=== PATIENT | male | born 1955 | race Caucasian/White ===

== ENCOUNTER 2016-08-19 11:44 | Emergency (ER) | payer MEDICARE, OTHER ==
[~2016-08-19] VITALS: Ht 182.9 cm; Wt 90.7 kg
--- NOTE | 2016-08-19 11:50 | NUR ---
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 Patient is aa03,. in no acute distress, respiration even and unlabored. Patient's skin is warm to touch and non diaphoretic. Afebrile,. Noted with left eye brow open wound sp fall post seizure. Unknown tetanus vaccine date iv on rac 20 intact and patent
[2016-08-19] MEDS ORDERED: IV NS 0.9% 1,000 ML ONE (12:10)
[2016-08-19] MEDS ORDERED: TDAP [DIPH/PERTUSSIS/TET] 0.5 ML VIAL IM ONE ×2 (12:11→12:30)
[2016-08-19 12:12] LABS: BASOPHILS # (AUTO) 0.1 /CMM (0.0-0.2); BASOPHILS % (AUTO) 1.4 % (0.0-2.0); EOSINOPHILS # (AUTO) 0.3 /CMM (0.0-0.7); EOSINOPHILS % (AUTO) 6.7 % (0.0-6.0); HEMATOCRIT 40 % (39-51); HEMOGLOBIN 13.5 g/dL (13.5-17.5); LYMPHOCYTES # (AUTO) 2.7 /CMM (0.8-4.8); MEAN CORPUSCULAR HEMOGLOBIN 32 PG (26.0-33.0); MEAN CORPUSCULAR HGB CONC 34 g/dl (31.0-36.0); MEAN CORPUSCULAR VOLUME 96 fL (80-96); MONOCYTES # (AUTO) 0.5 /CMM (0.1-1.30); NEUTROPHILS # (AUTO) 1.6 /CMM (1.8-8.9); NEUTROPHILS % (AUTO) 30.9 % (43.0-81.0); PLATELET COUNT (AUTO) 156 /CMM (150-450); RDW COEFFICIENT OF VARIATION 12.6 (11.5-15.0); RED BLOOD CELL COUNT(AUTO) 4.19 MIL/uL (4.5-6.0); WHITE BLOOD COUNT (AUTO) 5.2 K/uL (4.3-11.0)
[2016-08-19 12:16] LABS: CALCIUM, SERUM 8.5 mg/dL (8.5-10.1); CREATININE 0.9 mg/dL (0.6-1.3); POTASSIUM 3.9 mmol/L (3.5-5.1)
[2016-08-19] MEDS ORDERED: IV NS 0.9% 1,000 ML BAG IV ONE (12:30)
--- NOTE | 2016-08-19 12:30 | NUR ---
Wound care done
[2016-08-19 12:35] LABS: PHENYTOIN (DILANTIN) 0.5 ug/ml (10.0-20.0)
[2016-08-19 14:02] VITALS: BP 141/97
--- NOTE | 2016-08-19 14:03 | NUR ---
Patient discharged to home in stable condition. Written and verbal after care instructions given. Patient verbalizes understanding of instruction.
== END 2016-08-19 14:03 | disposition home or self-care (01) ==
LOC: ER 11:48
DX: S01.112A Laceration without foreign body of left eyelid and periocular area, initial encounter (principal); R56.9 Unspecified convulsions; S09.90XA Unspecified injury of head, initial encounter; W18.09XA Striking against other object with subsequent fall, initial encounter; Y93.89 Activity, other specified; Y92.89 Other specified places as the place of occurrence of the external cause; Y99.8 Other external cause status; F79 Unspecified intellectual disabilities; H40.9 Unspecified glaucoma
CPT/HCPCS: 12013; 36415; 70450; 80048; 80164; 80184; 80185; 82962; 85025; 90471; 90715; 96360; 99285; A4606; A6402 ×2; J7030; Z7610

== ENCOUNTER 2017-11-02 14:41 | Inpatient (IN) | payer MEDICARE, OTHER ==
[~2017-11-02] VITALS: Ht 177.8 cm; Wt 77.1 kg
[2017-11-02 16:08] LABS: BASOPHILS # (AUTO) 0.1 /CMM (0.0-0.2); BASOPHILS % (AUTO) 0.9 % (0.0-2.0); EOSINOPHILS % (AUTO) 0.2 % (0.0-6.0); HEMATOCRIT 43 % (39-51); HEMOGLOBIN 14.6 g/dL (13.5-17.5); LYMPHOCYTES # (AUTO) 2.4 /CMM (0.8-4.8); MEAN CORPUSCULAR HEMOGLOBIN 32 PG (26.0-33.0); MEAN CORPUSCULAR HGB CONC 34 g/dl (31.0-36.0); MEAN CORPUSCULAR VOLUME 94 fL (80-96); MONOCYTES # (AUTO) 1.4 /CMM (0.1-1.30); MONOCYTES % (AUTO) 14.4 % (2.0-12.0); NEUTROPHILS # (AUTO) 5.9 /CMM (1.8-8.9); NEUTROPHILS % (AUTO) 59.5 % (43.0-81.0); PLATELET COUNT (AUTO) 195 /CMM (150-450); RDW COEFFICIENT OF VARIATION 12.6 (11.5-15.0); RED BLOOD CELL COUNT(AUTO) 4.61 MIL/uL (4.5-6.0); WHITE BLOOD COUNT (AUTO) 9.8 K/uL (4.3-11.0)
[2017-11-02 16:19] LABS: CALCIUM, SERUM 9.5 mg/dL (8.5-10.1); POTASSIUM 3.8 mmol/L (3.5-5.1)
[2017-11-02 16:23] LABS: INR 0.97 (0.85-1.15)
[2017-11-02 16:30] LABS: ALBUMIN 3.9 g/dL (3.4-5.0); BILIRUBIN,DIRECT 0.4 mg/dL (0.0-0.2); TOTAL PROTEIN, SERUM 7.6 g/dL (6.4-8.2)
[2017-11-02 16:37] LABS: TROPONIN I 0.018 ng/mL (0.00-0.056)
[2017-11-02 16:48] LABS: CARBAMAZEPINE (TEGRETOL) 5.6 ug/ml (4-11.9)
[2017-11-02] MEDS ORDERED: LACO100T2 PO (17:34)
[2017-11-02] MEDS ORDERED: CLON0.5T4 PO (17:34)
[2017-11-02] MEDS ORDERED: TRAV5DRO EACHEYE (17:34)
[2017-11-02] MEDS ORDERED: DIVA500T2 PO (17:34)
[2017-11-02] MEDS ORDERED: LEVE250T2 PO ×2 (17:34)
[2017-11-02] MEDS ORDERED: LEVO50TA8 PO (17:34)
[2017-11-02] MEDS ORDERED: CHOL100044 PO (17:34)
[2017-11-02] MEDS ORDERED: CHLO473M5 MM (17:34)
[2017-11-02] MEDS ORDERED: CARB200T PO (17:34)
[2017-11-02 17:57] VITALS: BP 134/87
[2017-11-02] MEDS ORDERED: Z GUARD REMEDY 2 OZ OINT TP PRN (18:00)
[2017-11-02] MEDS ORDERED: MAG HYDROX/AL HYDROX/SIMETH 30 ML UDC PO PRN (18:00)
[2017-11-02] MEDS ORDERED: HYDROCODONE/APAP 5/325MG 1 EACH TABLET PO PRN (18:00)
[2017-11-02] MEDS ORDERED: LEVETIRACETAM (250 MG) 250 MG TABLET PO SCH (18:00)
[2017-11-02] MEDS ORDERED: MAGNESIUM HYDROXIDE 30 ML UDC PO PRN (18:00)
[2017-11-02] MEDS ORDERED: ACETAMINOPHEN 325 MG TABLET PO PRN (18:00)
[2017-11-02] MEDS ORDERED: ONDANSETRON HCL/PF 4 MG/2 ML VIAL IVP PRN (18:00)
[2017-11-02 20:00] VITALS: BP 156/89
[2017-11-02 20:16] VITALS: BP 156/89
[2017-11-02] MEDS: LEVETIRACETAM (500MG) 1,000 MG in IV NS 0.9% 100 ML IV SCH (20:38)
[2017-11-02] MEDS: LATANOPROST EYE DROP 0.005% 2.5 ML BOTTLE EACHEYE SCH (20:38)
[2017-11-02] MEDS: ENOXAPARIN SODIUM 40 MG/0.4 ML DISP.SYRIN SQ SCH (20:39)
[2017-11-02] MEDS: IV NS 0.9% 1,000 ML IV PRN (20:39)
[2017-11-02] MEDS: CHLORHEXIDINE GLUCONATE 15 ML UDC MM SCH (20:39)
[2017-11-02] MEDS: LACOSAMIDE 50 MG TABLET PO SCH (21:00)
[2017-11-02] MEDS: VALPROATE 1,000 MG in IV D5W 100 ML IV SCH (21:45)
[2017-11-02] MEDS: ATORVASTATIN 40 MG TABLET PO SCH (22:00)
[2017-11-02] MEDS ORDERED: ATORVASTATIN 10 MG TABLET PO SCH (22:00)
[2017-11-03] VITALS: BP 156/80
[2017-11-03 00:24] VITALS: BP 156/80
[2017-11-03 04:00] VITALS: BP 144/85
[2017-11-03] MEDS: LEVETIRACETAM (500MG) 1,000 MG in IV NS 0.9% 100 ML IV SCH ×2 (06:26→18:04)
[2017-11-03 06:27] LABS: BASOPHILS % (AUTO) 0.4 % (0.0-2.0); EOSINOPHILS % (AUTO) 0.6 % (0.0-6.0); HEMATOCRIT 42 % (39-51); HEMOGLOBIN 14.6 g/dL (13.5-17.5); LYMPHOCYTES % (AUTO) 26.8 % (20.0-44.0); MEAN CORPUSCULAR HEMOGLOBIN 34 PG (26.0-33.0); MEAN CORPUSCULAR HGB CONC 34 g/dl (31.0-36.0); MEAN CORPUSCULAR VOLUME 98 fL (80-96); MONOCYTES % (AUTO) 13.1 % (2.0-12.0); NEUTROPHILS # (AUTO) 4.5 /CMM (1.8-8.9); NEUTROPHILS % (AUTO) 59.1 % (43.0-81.0); PLATELET COUNT (AUTO) 171 /CMM (150-450); RDW COEFFICIENT OF VARIATION 13.3 (11.5-15.0); RED BLOOD CELL COUNT(AUTO) 4.34 MIL/uL (4.5-6.0); WHITE BLOOD COUNT (AUTO) 7.6 K/uL (4.3-11.0)
[2017-11-03 06:45] LABS: THYROID STIMULATING HORMONE 6.073 uIU/mL (0.358-3.74)
[2017-11-03 07:10] LABS: CALCIUM, SERUM 8.9 mg/dL (8.5-10.1); CREATININE 0.8 mg/dL (0.6-1.3); POTASSIUM 3.9 mmol/L (3.5-5.1)
[2017-11-03 08:00] VITALS: BP 143/84
[2017-11-03] MEDS: CHOLECALCIFEROL 1,000 UNIT TABLET (VIT D3) PO SCH (09:00)
[2017-11-03] MEDS: CARBAMAZEPINE 200 MG TABLET PO SCH ×3 (09:00→17:00)
[2017-11-03] MEDS ORDERED: ASPIRIN EC 81 MG TABLET.DR PO SCH ×2 (09:00)
[2017-11-03] MEDS ORDERED: DIVALPROEX SODIUM 500 MG TABLET.DR PO SCH (09:00)
[2017-11-03] MEDS ORDERED: LEVOTHYROXINE SODIUM 50 MCG TABLET PO SCH (09:00)
[2017-11-03] MEDS: clonazePAM 0.5 MG TABLET PO SCH ×2 (09:00→17:00)
[2017-11-03] MEDS: LACOSAMIDE 50 MG TABLET PO SCH ×2 (09:00→21:00)
[2017-11-03] MEDS: PANTOPRAZOLE 40 MG VIAL IV SCH (09:06)
[2017-11-03] MEDS: VALPROATE 1,000 MG in IV D5W 100 ML IV SCH ×2 (09:07→21:12)
[2017-11-03] MEDS: LEVOTHYROXINE INJ 100 MCG VIAL IV SCH (11:44)
[2017-11-03] MEDS ORDERED: LEVETIRACETAM (250 MG) 250 MG TABLET PO SCH (12:00)
[2017-11-03] MEDS: LEVETIRACETAM (500MG) 500 MG in IV NS 0.9% 100 ML IV SCH (12:32)
[2017-11-03 16:00] VITALS: BP 128/76
[2017-11-03] MEDS: LATANOPROST EYE DROP 0.005% 2.5 ML BOTTLE EACHEYE SCH (18:03)
[2017-11-03] MEDS: CHLORHEXIDINE GLUCONATE 15 ML UDC MM SCH (18:13)
[2017-11-03] MEDS: ASPIRIN 300 MG/SUPP.RECT RC SCH (18:28)
[2017-11-03 18:56] LABS: BILIRUBIN,URINE NEGATIVE (NEGATIVE); BLOOD, URINE 2+ Ery/uL (NEGATIVE); COLOR,URINE YELLOW (YELLOW); KETONES,URINE 1+ (NEGATIVE); LEUKOCYTE ESTERASE ,URINE NEGATIVE (NEGATIVE); NITRITE, URINE NEGATIVE (NEGATIVE); PROTEIN,URINE NEGATIVE (NEGATIVE); UGLUCOSE NEGATIVE (NEGATIVE)
[2017-11-03 19:12] LABS: APPEARANCE,URINE SLIGHTLY CLOUDY (CLEAR)
[2017-11-03 19:15] LABS: BACTERIA,URINE Rare /HPF (None Seen); SQUAMOUS EPITHELIAL CELL,UR Rare /HPF (None Seen); WBC,URINE 0-2 /HPF (0-3)
[2017-11-03 20:00] VITALS: BP 122/68
[2017-11-03] MEDS: ENOXAPARIN SODIUM 40 MG/0.4 ML DISP.SYRIN SQ SCH (21:14)
[2017-11-03] MEDS: ATORVASTATIN 40 MG TABLET PO SCH (22:00)
[2017-11-03] MEDS: IV NS 0.9% 1,000 ML IV PRN (23:56)
[2017-11-04] MEDS: LEVETIRACETAM (500MG) 1,000 MG in IV NS 0.9% 100 ML IV SCH ×2 (06:06→17:01)
[2017-11-04 06:25] LABS: BASOPHILS % (AUTO) 0.4 % (0.0-2.0); EOSINOPHILS % (AUTO) 0.5 % (0.0-6.0); HEMATOCRIT 42 % (39-51); HEMOGLOBIN 14.1 g/dL (13.5-17.5); LYMPHOCYTES # (AUTO) 1.7 /CMM (0.8-4.8); LYMPHOCYTES % (AUTO) 22.6 % (20.0-44.0); MEAN CORPUSCULAR HEMOGLOBIN 33 PG (26.0-33.0); MEAN CORPUSCULAR HGB CONC 34 g/dl (31.0-36.0); MEAN CORPUSCULAR VOLUME 98 fL (80-96); MONOCYTES # (AUTO) 0.7 /CMM (0.1-1.30); MONOCYTES % (AUTO) 9.5 % (2.0-12.0); NEUTROPHILS # (AUTO) 5.1 /CMM (1.8-8.9); PLATELET COUNT (AUTO) 168 /CMM (150-450); RDW COEFFICIENT OF VARIATION 13.2 (11.5-15.0); RED BLOOD CELL COUNT(AUTO) 4.26 MIL/uL (4.5-6.0); WHITE BLOOD COUNT (AUTO) 7.6 K/uL (4.3-11.0)
[2017-11-04 06:32] LABS: CREATININE 0.9 mg/dL (0.6-1.3); POTASSIUM 4.3 mmol/L (3.5-5.1)
[2017-11-04 08:00] VITALS: BP 130/71
[2017-11-04] MEDS: PANTOPRAZOLE 40 MG VIAL IV SCH (08:33)
[2017-11-04] MEDS: LEVOTHYROXINE INJ 100 MCG VIAL IV SCH (08:34)
[2017-11-04] MEDS: ASPIRIN 300 MG/SUPP.RECT RC SCH (08:34)
[2017-11-04] MEDS: CARBAMAZEPINE 200 MG TABLET PO SCH ×3 (08:40→16:59)
[2017-11-04] MEDS: clonazePAM 0.5 MG TABLET PO SCH ×2 (08:40→16:59)
[2017-11-04] MEDS: LACOSAMIDE 50 MG TABLET PO SCH ×3 (08:41→21:29)
[2017-11-04] MEDS: CHOLECALCIFEROL 1,000 UNIT TABLET (VIT D3) PO SCH (08:41)
[2017-11-04] MEDS: VALPROATE 1,000 MG in IV D5W 100 ML IV SCH ×2 (09:27→21:29)
[2017-11-04] MEDS: LEVETIRACETAM (500MG) 500 MG in IV NS 0.9% 100 ML IV SCH (12:31)
[2017-11-04 16:00] VITALS: BP 101/76
[2017-11-04] MEDS: CHLORHEXIDINE GLUCONATE 15 ML UDC MM SCH (17:01)
[2017-11-04] MEDS: LATANOPROST EYE DROP 0.005% 2.5 ML BOTTLE EACHEYE SCH (17:14)
[2017-11-04 20:00] VITALS: BP 142/82
[2017-11-04] MEDS: ATORVASTATIN 40 MG TABLET PO SCH ×2 (21:29→22:00)
[2017-11-04] MEDS: ENOXAPARIN SODIUM 40 MG/0.4 ML DISP.SYRIN SQ SCH (21:30)
[2017-11-05] MEDS: IV NS 0.9% 1,000 ML IV PRN (04:10)
[2017-11-05] MEDS: LEVETIRACETAM (500MG) 1,000 MG in IV NS 0.9% 100 ML IV SCH ×2 (06:07→17:14)
[2017-11-05 06:35] LABS: BASOPHILS % (AUTO) 0.7 % (0.0-2.0); HEMATOCRIT 40 % (39-51); HEMOGLOBIN 13.6 g/dL (13.5-17.5); LYMPHOCYTES # (AUTO) 1.7 /CMM (0.8-4.8); LYMPHOCYTES % (AUTO) 34.8 % (20.0-44.0); MEAN CORPUSCULAR HEMOGLOBIN 34 PG (26.0-33.0); MEAN CORPUSCULAR HGB CONC 34 g/dl (31.0-36.0); MEAN CORPUSCULAR VOLUME 98 fL (80-96); MONOCYTES # (AUTO) 0.6 /CMM (0.1-1.30); MONOCYTES % (AUTO) 11.6 % (2.0-12.0); NEUTROPHILS # (AUTO) 2.4 /CMM (1.8-8.9); NEUTROPHILS % (AUTO) 50.9 % (43.0-81.0); PLATELET COUNT (AUTO) 177 /CMM (150-450); RDW COEFFICIENT OF VARIATION 13.5 (11.5-15.0); RED BLOOD CELL COUNT(AUTO) 4.07 MIL/uL (4.5-6.0); WHITE BLOOD COUNT (AUTO) 4.8 K/uL (4.3-11.0)
[2017-11-05 06:45] LABS: CALCIUM, SERUM 8.6 mg/dL (8.5-10.1); CREATININE 0.8 mg/dL (0.6-1.3); POTASSIUM 4.3 mmol/L (3.5-5.1)
[2017-11-05 08:00] VITALS: BP 143/75
[2017-11-05] MEDS: clonazePAM 0.5 MG TABLET PO SCH ×2 (08:45→16:05)
[2017-11-05] MEDS: LEVOTHYROXINE INJ 100 MCG VIAL IV SCH (08:45)
[2017-11-05] MEDS: CARBAMAZEPINE 200 MG TABLET PO SCH ×3 (08:46→16:05)
[2017-11-05] MEDS: ASPIRIN 300 MG/SUPP.RECT RC SCH (08:47)
[2017-11-05] MEDS: LACOSAMIDE 50 MG TABLET PO SCH ×2 (08:47→21:00)
[2017-11-05] MEDS: CHOLECALCIFEROL 1,000 UNIT TABLET (VIT D3) PO SCH (08:47)
[2017-11-05] MEDS: PANTOPRAZOLE 40 MG VIAL IV SCH (08:50)
[2017-11-05] MEDS: VALPROATE 1,000 MG in IV D5W 100 ML IV SCH ×2 (09:03→21:05)
[2017-11-05] MEDS: LEVETIRACETAM (500MG) 500 MG in IV NS 0.9% 100 ML IV SCH (11:05)
[2017-11-05 16:00] VITALS: BP 147/86
[2017-11-05] MEDS: LATANOPROST EYE DROP 0.005% 2.5 ML BOTTLE EACHEYE SCH (17:14)
[2017-11-05] MEDS: CHLORHEXIDINE GLUCONATE 15 ML UDC MM SCH (17:15)
[2017-11-05 20:00] VITALS: BP 138/78
[2017-11-05] MEDS: ENOXAPARIN SODIUM 40 MG/0.4 ML DISP.SYRIN SQ SCH (21:00)
[2017-11-05] MEDS: ATORVASTATIN 40 MG TABLET PO SCH (21:09)
[2017-11-06] VITALS (7 sets, daily range): BP systolic 132–145; BP diastolic 70–84
[2017-11-06] MEDS: IV NS 0.9% 1,000 ML IV PRN ×2 (02:50→23:06)
[2017-11-06] MEDS: LEVETIRACETAM (500MG) 1,000 MG in IV NS 0.9% 100 ML IV SCH (05:39)
[2017-11-06 06:01] LABS: INR 1.1 (0.87-1.13)
[2017-11-06 06:06] LABS: BASOPHILS % (AUTO) 0.5 % (0.0-2.0); CREATININE 0.9 mg/dL (0.6-1.3); HEMATOCRIT 41 % (39-51); LYMPHOCYTES # (AUTO) 1.8 /CMM (0.8-4.8); LYMPHOCYTES % (AUTO) 30.7 % (20.0-44.0); MEAN CORPUSCULAR HEMOGLOBIN 34 PG (26.0-33.0); MEAN CORPUSCULAR HGB CONC 34 g/dl (31.0-36.0); MEAN CORPUSCULAR VOLUME 98 fL (80-96); MONOCYTES # (AUTO) 0.6 /CMM (0.1-1.30); MONOCYTES % (AUTO) 9.8 % (2.0-12.0); NEUTROPHILS # (AUTO) 3.3 /CMM (1.8-8.9); PLATELET COUNT (AUTO) 170 /CMM (150-450); POTASSIUM 4.5 mmol/L (3.5-5.1); RED BLOOD CELL COUNT(AUTO) 4.18 MIL/uL (4.5-6.0); WHITE BLOOD COUNT (AUTO) 5.9 K/uL (4.3-11.0)
[2017-11-06] MEDS: LEVOTHYROXINE INJ 100 MCG VIAL IV SCH (08:18)
[2017-11-06] MEDS: PANTOPRAZOLE 40 MG VIAL IV SCH (08:59)
[2017-11-06] MEDS: CHOLECALCIFEROL 1,000 UNIT TABLET (VIT D3) PO SCH (09:00)
[2017-11-06] MEDS: clonazePAM 0.5 MG TABLET PO SCH (09:00)
[2017-11-06] MEDS: CARBAMAZEPINE 200 MG TABLET PO SCH ×2 (09:00→13:00)
[2017-11-06] MEDS: LACOSAMIDE 50 MG TABLET PO SCH (09:00)
[2017-11-06] MEDS: VALPROATE 1,000 MG in IV D5W 100 ML IV SCH (09:27)
[2017-11-06] MEDS: LEVETIRACETAM (500MG) 500 MG in IV NS 0.9% 100 ML IV SCH (11:55)
[2017-11-06] MEDS: ASPIRIN 300 MG/SUPP.RECT RC SCH (15:40)
[2017-11-06] MEDS ORDERED: HYDROCODONE/APAP 5/325MG 1 EACH TABLET GT PRN (16:53)
[2017-11-06] MEDS ORDERED: MAGNESIUM HYDROXIDE 30 ML UDC GT PRN (16:53)
[2017-11-06] MEDS ORDERED: MAG HYDROX/AL HYDROX/SIMETH 30 ML UDC GT PRN (16:53)
[2017-11-06] MEDS ORDERED: PHARMACY TO CHANGE PO MEDS TO GT/NG XX PRN (17:00)
[2017-11-06] MEDS ORDERED: JEVITY 1.2 CAL 1,000 ML BOTTLE GT PRN (17:00)
[2017-11-06] MEDS: clonazePAM 0.5 MG TABLET GT SCH (17:47)
[2017-11-06] MEDS: CARBAMAZEPINE 200 MG TABLET GT SCH (17:49)
[2017-11-06] MEDS: LEVETIRACETAM SOL (5 ML) 100 MG/ML UDC GT SCH (18:45)
[2017-11-06] MEDS: CHLORHEXIDINE GLUCONATE 15 ML UDC MM SCH (18:50)
[2017-11-06] MEDS: LATANOPROST EYE DROP 0.005% 2.5 ML BOTTLE EACHEYE SCH (18:50)
[2017-11-06] MEDS: VALPROIC ACID 250 MG/5 ML UDC GT SCH (21:09)
[2017-11-06] MEDS: ATORVASTATIN 40 MG TABLET GT SCH (21:14)
[2017-11-06] MEDS: LACOSAMIDE 50 MG TABLET GT SCH (21:14)
[2017-11-06] MEDS: ENOXAPARIN SODIUM 40 MG/0.4 ML DISP.SYRIN SQ SCH (21:19)
[2017-11-07] MEDS: LEVETIRACETAM SOL (5 ML) 100 MG/ML UDC GT SCH ×3 (06:15→17:18)
[2017-11-07 08:00] VITALS: BP 135/79
[2017-11-07] MEDS: LEVOTHYROXINE INJ 100 MCG VIAL IV SCH (08:20)
[2017-11-07] MEDS: clonazePAM 0.5 MG TABLET GT SCH ×2 (09:08→17:17)
[2017-11-07] MEDS: LACOSAMIDE 50 MG TABLET GT SCH ×2 (09:08→21:00)
[2017-11-07] MEDS: CHOLECALCIFEROL 1,000 UNIT TABLET (VIT D3) GT SCH (09:09)
[2017-11-07] MEDS: CARBAMAZEPINE 200 MG TABLET GT SCH ×3 (09:12→17:18)
[2017-11-07] MEDS: VALPROIC ACID 250 MG/5 ML UDC GT SCH ×2 (09:14→21:00)
[2017-11-07] MEDS: PANTOPRAZOLE 40 MG VIAL IV SCH (09:18)
[2017-11-07] MEDS: ASPIRIN 300 MG/SUPP.RECT RC SCH (09:54)
[2017-11-07 16:00] VITALS: BP 126/81
[2017-11-07] MEDS: LATANOPROST EYE DROP 0.005% 2.5 ML BOTTLE EACHEYE SCH (17:19)
[2017-11-07] MEDS: CHLORHEXIDINE GLUCONATE 15 ML UDC MM SCH (17:19)
[2017-11-07 20:00] VITALS: BP 133/75
[2017-11-07] MEDS: ENOXAPARIN SODIUM 40 MG/0.4 ML DISP.SYRIN SQ SCH (20:49)
[2017-11-07] MEDS: ATORVASTATIN 40 MG TABLET GT SCH (22:38)
[2017-11-08] MEDS: LEVETIRACETAM SOL (5 ML) 100 MG/ML UDC GT SCH ×2 (05:37→11:21)
[2017-11-08 07:13] LABS: CALCIUM, SERUM 8.5 mg/dL (8.5-10.1); CREATININE 0.7 mg/dL (0.6-1.3); MAGNESIUM 1.8 mg/dL (1.8-2.4); PHOSPHORUS 2.6 mg/dL (2.5-4.9); POTASSIUM 3.3 mmol/L (3.5-5.1)
[2017-11-08 08:00] VITALS: BP 115/70
[2017-11-08] MEDS: clonazePAM 0.5 MG TABLET GT SCH (08:36)
[2017-11-08] MEDS: VALPROIC ACID 250 MG/5 ML UDC GT SCH (08:37)
[2017-11-08] MEDS: PANTOPRAZOLE 40 MG VIAL IV SCH (08:38)
[2017-11-08] MEDS: CARBAMAZEPINE 200 MG TABLET GT SCH (08:38)
[2017-11-08] MEDS: CHOLECALCIFEROL 1,000 UNIT TABLET (VIT D3) GT SCH (08:38)
[2017-11-08] MEDS: LACOSAMIDE 50 MG TABLET GT SCH (08:46)
[2017-11-08] MEDS: ASPIRIN 300 MG/SUPP.RECT RC SCH (09:19)
[2017-11-08] MEDS ORDERED: LEVOTHYROXINE SODIUM 50 MCG TABLET GT SCH (09:30)
[2017-11-08] MEDS ORDERED: POTASSIUM CHLORIDE 20 MEQ POWDER PACKET PO SCH (10:30)
== END 2017-11-08 12:54 | DRG 640 ==
LOC: ER 14:44 → TELE 17:03 → MED 11-03 08:19
PROVIDERS: ADMIT Registered Nurse; ATTEND Registered Nurse
PROC: 3E0G76Z Introduction of Nutritional Substance into Upper GI, Via Natural or Artificial Opening (ICD-10-PCS; 2017-11-06)
PROC: 0DH63UZ Insertion of Feeding Device into Stomach, Percutaneous Approach (ICD-10-PCS; principal; 2017-11-06 13:30)
DX: E86.9 Volume depletion, unspecified (principal); G93.41 Metabolic encephalopathy; N17.0 Acute kidney failure with tubular necrosis; G40.909 Epilepsy, unspecified, not intractable, without status epilepticus; E87.1 Hypo-osmolality and hyponatremia; Z86.73 Personal history of transient ischemic attack (TIA), and cerebral infarction without residual deficits; E03.9 Hypothyroidism, unspecified; H40.9 Unspecified glaucoma; Z79.899 Other long term (current) drug therapy; R73.9 Hyperglycemia, unspecified; F70 Mild intellectual disabilities; R13.10 Dysphagia, unspecified; F03.90 Unspecified dementia, unspecified severity, without behavioral disturbance, psychotic disturbance, mood disturbance, and anxiety
CPT/HCPCS: 36415; 43246; 70450-TC; 71045-TC; 80048-TC; 80061-TC; 80076-TC; 80156-TC; 80164-TC; 81000-TC; 82962-TC; 83735-TC; 84100-TC; 84439-TC; 84443-TC; 84484-TC; 85025-TC; 85610-TC; 85730-TC; 86850-TC; 87081-TC; 92611-TC; 93307-TC; 93880-TC; 97110-TC; 97112-TC; 97116-TC; 97530-TC; A4606; C9113; J1650; J1953; J2704; J3490; J7030; J7060; Z7610

== ENCOUNTER 2018-08-04 13:36 | Inpatient (IN) | payer MEDICARE, MEDICAID ==
[~2018-08-04] VITALS: Ht 177.8 cm; Wt 79.4 kg
[~2018-08-04 13:36] MED LIST: CARB200T PO; CHLO473M5 MM; CHOL100044 PO; CLON0.5T12 PO; DIVA500T2 PO; LACO100T2 PO; LEVE250T2 PO; LEVO50TA8 PO; TRAV5DRO EACHEYE
--- NOTE | 2018-08-04 13:36 | NUR ---
[facility] WITH CAREGIVER S/P SZ; PT ALERT, AWAKE, VERBALLY REPSONIVE, NAD NOTED, VSS, PT ON MONITOR, MD AT BEDSIDE FOR EVAL
[2018-08-04] MEDS ORDERED: LORAZEPAM INJ 2 MG/ML VIAL ONE ×2 (14:05→15:34)
[2018-08-04 14:26] LABS: BASOPHILS % (AUTO) 0.4 % (0.0-2.0); EOSINOPHILS % (AUTO) 3.1 % (0.0-6.0); HEMATOCRIT 40 % (39-51); HEMOGLOBIN 13.4 g/dL (13.5-17.5); LYMPHOCYTES # (AUTO) 2.3 /CMM (0.8-4.8); LYMPHOCYTES % (AUTO) 48.1 % (20.0-44.0); MEAN CORPUSCULAR HGB CONC 34 g/dl (31.0-36.0); MEAN CORPUSCULAR VOLUME 97 fL (80-96); MONOCYTES # (AUTO) 0.5 /CMM (0.1-1.30); MONOCYTES % (AUTO) 9.6 % (2.0-12.0); NEUTROPHILS # (AUTO) 1.8 /CMM (1.8-8.9); NEUTROPHILS % (AUTO) 38.8 % (43.0-81.0); PLATELET COUNT (AUTO) 164 /CMM (150-450); RED BLOOD CELL COUNT(AUTO) 4.07 MIL/uL (4.5-6.0); WHITE BLOOD COUNT (AUTO) 4.7 K/uL (4.3-11.0)
[2018-08-04] MEDS ORDERED: IV NS 0.9% 1,000 ML BAG IV ONE (14:30)
[2018-08-04] MEDS: LEVETIRACETAM (500MG) 500 MG in IV NS 0.9% 100 ML IV SCH (14:30)
[2018-08-04] MEDS ORDERED: LORAZEPAM INJ 2 MG/ML VIAL IVP ONE (14:30)
[2018-08-04 14:33] LABS: CALCIUM, SERUM 8.7 mg/dL (8.5-10.1); CREATININE 0.8 mg/dL (0.6-1.3); POTASSIUM 3.6 mmol/L (3.5-5.1)
[2018-08-04 14:38] LABS: ALBUMIN 4.1 g/dL (3.4-5.0); BILIRUBIN,DIRECT 0.1 mg/dL (0.0-0.2); BILIRUBIN,TOTAL 0.3 mg/dL (0.2-1.0)
[2018-08-04] MEDS ORDERED: LORAZEPAM INJ 2 MG/ML VIAL IV ONE (15:00)
--- NOTE | 2018-08-04 15:15 | NUR ---
ISRRAEL MENDEZ, MONI WOLFE SOLID PLASTERER CULINARY INTERN
--- NOTE | 2018-08-04 16:28 | NUR ---
REPORT GIVEN TO MIHCEAL LEE FOR LIVE; PT WILL BE TRANSPORTED TO [address] [place] [address] VIA ACLS PROTOCOL
[2018-08-04] MEDS ORDERED: HYDROCODONE/APAP 5/325MG 1 EACH TABLET PO PRN (16:30)
[2018-08-04] MEDS ORDERED: MORPHINE SULFATE INJ 2 MG/ML DISP.SYRIN IV PRN (16:30)
[2018-08-04] MEDS ORDERED: ONDANSETRON HCL/PF 4 MG/2 ML VIAL IVP PRN (16:30)
[2018-08-04] MEDS ORDERED: LORAZEPAM INJ 2 MG/ML VIAL IV PRN (16:30)
[2018-08-04] MEDS ORDERED: MAGNESIUM HYDROXIDE 30 ML UDC PO PRN (16:30)
[2018-08-04] MEDS ORDERED: MAG HYDROX/AL HYDROX/SIMETH 30 ML UDC PO PRN (16:30)
[2018-08-04] MEDS ORDERED: Z GUARD REMEDY 2 OZ OINT TP PRN (16:30)
[2018-08-04] MEDS ORDERED: ACETAMINOPHEN 325 MG TABLET PO PRN (16:30)
[2018-08-04 17:00] VITALS: BP 147/72
[2018-08-04] MEDS: CARBAMAZEPINE 200 MG TABLET PO SCH (17:33)
[2018-08-04] MEDS: DIVALPROEX SODIUM 500 MG TABLET.DR PO SCH (17:33)
[2018-08-04] MEDS: clonazePAM 0.5 MG TABLET PO SCH (17:33)
[2018-08-04] MEDS: CHLORHEXIDINE GLUCONATE 15 ML UDC MM SCH (17:33)
[2018-08-04] MEDS: IV NS 0.9% 1,000 ML IV PRN (17:55)
[2018-08-04] MEDS ORDERED: LEVETIRACETAM (250 MG) 250 MG TABLET PO SCH (18:00)
--- NOTE | 2018-08-04 18:11 | NUR ---
Tele/RN - Admission Received patient from ER, awake, alert to self, developmentally delayed, verbally responsive, reality orientation given. Patient is stable on room air, denies pain at this time, tele shows SR, VSS, no seizure activity seen. Skin assessment done, noted with blanchable redness, photo taken. patient independent with bed mobility. Patient oriented to the room and use of call light. All belongings accounted. Seizure, fall and aspiration precautions initiated. Admission orders noted and implemented. Patient resides at [facility], records in the chart. Will continue with current medical management and will endorsed to night RN accordingly.
--- NOTE | 2018-08-04 18:17 | NUR ---
MS RN NOTES URINE SPECIMEN COLLECTED. LAB NOTIFIED FOR NASCAR PIT CREW PERSON.
[2018-08-04] MEDS ORDERED: LEVE500T20 PO (18:51)
[2018-08-04] MEDS ORDERED: VALP250S3 PO (18:51)
[2018-08-04] MEDS ORDERED: LATA2.5D7 EACHEYE (18:51)
[2018-08-04] MEDS ORDERED: DIAZ2.5K3 RC (18:51)
[2018-08-04] MEDS ORDERED: LEVE500S9 PO (19:20)
--- NOTE | 2018-08-04 19:25 | NUR ---
RN Notes Received patient awake, verbal and oriented x1 with mental retardation. Patient denies any pain and discomfort at this time. Telemonitor reads sinus rhythm with heart rate at 88. IV access on right AC patent and intact with ongoing IVF infusing well. Safety measures and fall precaution in place with call light within reach with sitter at bedside. Will continue to monitor patient.
[2018-08-04 20:07] LABS: APPEARANCE,URINE SL CLOUDY (CLEAR); BILIRUBIN,URINE NEGATIVE (NEGATIVE); BLOOD, URINE TRACE-INTA Ery/uL (NEGATIVE); COLOR,URINE YELLOW (YELLOW); KETONES,URINE NEGATIVE (NEGATIVE); LEUKOCYTE ESTERASE ,URINE NEGATIVE (NEGATIVE); NITRITE, URINE NEGATIVE (NEGATIVE); PROTEIN,URINE NEGATIVE (NEGATIVE); UGLUCOSE NEGATIVE (NEGATIVE); UROBILINOGEN,URINE 0.2 EU/dL (0.2)
[2018-08-04 20:19] LABS: BACTERIA,URINE Few /HPF (None Seen); RBC,URINE 0-2 /HPF (0-2); SQUAMOUS EPITHELIAL CELL,UR Few /HPF (None Seen); WBC,URINE 0-2 /HPF (0-3)
[2018-08-04] MEDS: LACOSAMIDE 50 MG TABLET PO SCH (20:56)
[2018-08-04] MEDS: ENOXAPARIN SODIUM 40 MG/0.4 ML DISP.SYRIN SQ SCH (20:57)
[2018-08-04 22:00] VITALS: BP 135/67
[2018-08-04] MEDS: LATANOPROST EYE DROP 0.005% 2.5 ML BOTTLE OP SCH (22:00)
[2018-08-05] MEDS: LEVETIRACETAM (500MG) 500 MG in IV NS 0.9% 100 ML IV SCH (02:30)
[2018-08-05] MEDS ORDERED: LEVETIRACETAM (250 MG) 250 MG TABLET PO SCH (03:30)
[2018-08-05] MEDS: IV NS 0.9% 1,000 ML IV PRN ×2 (06:09→20:13)
--- NOTE | 2018-08-05 06:39 | NUR ---
RN Notes Patient slept on and off, with some confusion. Denies pain, nausea and vomiting. Tele monitor reads sinus rhythm with heart rate at 67. No episode of seizure noted. Seizure precaution observed. No significant change in condition noted. Safety measures observed with sitter at bedside. Patient assisted to the bathroom with assist. kept clean and dry. All needs attended. Will endorse to morning RN for continuity of care.
[2018-08-05] MEDS: LEVETIRACETAM (250 MG) 250 MG TABLET PO SCH ×3 (06:55→17:18)
--- NOTE | 2018-08-05 07:00 | NUR ---
ELECTRONIC ORGAN MECHANIC NOTES PATIENT IN BED EYES CLOSED, EASY TO AROUSE. NO ACUTE DISTRESS NOTED. BREATHING UNLABORED. NO SOB NOTED. SITTER AT BEDSIDE. IV ACCESS PATENT AND INTACT, NO REDNESS OR SWELLING NOTED. SAFETY MEAURES IN PLACE. CALL LIGHT WITHIN REACH. WILL CONTINUE TO MONITOR ACCORDINGLY.
[2018-08-05 07:18] LABS: BASOPHILS % (AUTO) 0.6 % (0.0-2.0); EOSINOPHILS % (AUTO) 1.8 % (0.0-6.0); HEMATOCRIT 41 % (39-51); HEMOGLOBIN 14.3 g/dL (13.5-17.5); LYMPHOCYTES # (AUTO) 1.7 /CMM (0.8-4.8); LYMPHOCYTES % (AUTO) 35.5 % (20.0-44.0); MEAN CORPUSCULAR HGB CONC 35 g/dl (31.0-36.0); MEAN CORPUSCULAR VOLUME 95 fL (80-96); MONOCYTES # (AUTO) 0.6 /CMM (0.1-1.30); MONOCYTES % (AUTO) 11.5 % (2.0-12.0); NEUTROPHILS # (AUTO) 2.5 /CMM (1.8-8.9); NEUTROPHILS % (AUTO) 50.6 % (43.0-81.0); PLATELET COUNT (AUTO) 178 /CMM (150-450); RED BLOOD CELL COUNT(AUTO) 4.36 MIL/uL (4.5-6.0); WHITE BLOOD COUNT (AUTO) 4.9 K/uL (4.3-11.0)
[2018-08-05 07:35] LABS: THYROID STIMULATING HORMONE 5.331 uIU/mL (0.358-3.74)
[2018-08-05 07:38] LABS: CALCIUM, SERUM 9.1 mg/dL (8.5-10.1); CREATININE 0.8 mg/dL (0.6-1.3); POTASSIUM 4.1 mmol/L (3.5-5.1)
[2018-08-05 07:47] LABS: MAGNESIUM 1.9 mg/dL (1.8-2.4); PHOSPHORUS 3.7 mg/dL (2.5-4.9)
[2018-08-05 08:00] VITALS: BP 135/82
[2018-08-05] MEDS: CARBAMAZEPINE 200 MG TABLET PO SCH ×3 (08:39→17:18)
[2018-08-05] MEDS: CHOLECALCIFEROL 1,000 UNIT TABLET (VIT D3) PO SCH (08:39)
[2018-08-05] MEDS: clonazePAM 0.5 MG TABLET PO SCH ×2 (08:39→17:18)
[2018-08-05] MEDS: DIVALPROEX SODIUM 500 MG TABLET.DR PO SCH ×2 (08:39→17:18)
[2018-08-05] MEDS: LACOSAMIDE 50 MG TABLET PO SCH ×2 (08:39→20:13)
[2018-08-05] MEDS: PANTOPRAZOLE 40 MG TABLET.DR PO SCH (08:59)
[2018-08-05] MEDS ORDERED: PANTOPRAZOLE 40 MG VIAL IV SCH (09:00)
[2018-08-05] MEDS ORDERED: LEVOTHYROXINE SODIUM 50 MCG TABLET PO SCH (09:00)
[2018-08-05 12:00] VITALS: BP 133/79
[2018-08-05] MEDS: CHLORHEXIDINE GLUCONATE 15 ML UDC MM SCH (17:18)
--- NOTE | 2018-08-05 18:29 | NUR ---
MS RN NOTES PATIENT IN BED ALERT ORIENTED X 1. NO ACUTE DISTRESS NOTED. BREATHING UNLABORED. NO SOB NOTED. SITTER AT BEDSIDE. IV ACCESS PATENT AND INTACT, NO REDNESS OR SWELLING NOTED. DUE MEDICATIONS GIVEN, NO ASE NOTED. SAFETY MEASURES IN PLACE. HOB ELEVATED. CALL LIGHT WITHIN REACH. WILL CONTINUE TO MONITOR AND ENDORSE TO NIGHT NURSE FOR CONTINUITY OF CARE.
--- NOTE | 2018-08-05 19:00 | NUR ---
MS RN NOTE RECEIVED PT IN STABLE CONDITION A&O X1. NO SIGNS OF SOB OR DISTRESS, NO C/O PAIN. 1:1 SITTER AT BEDSIDE. ALL CURRENT NEEDS MET. SAFETY MEASURES IN PLACE: BED LOW, LOCKED, UPPER RAILS UP, FALL PRECAUTIONS, SEIZURE PRECAUTIONS, CALL LIGHT WITHIN REACH. WILL CONT TO MONITOR.
--- NOTE | 2018-08-05 19:03 | NUR ---
MS RN NOTE PT SEEN AND EXAMINED BY DR. GARCIA WITH NEW ORDER TO INCREASE VIMPAT TO 200 MG Q12. NEW ORDER CARRIED OUT.
[2018-08-05 19:39] VITALS: BP 139/71
[2018-08-05] MEDS: ENOXAPARIN SODIUM 40 MG/0.4 ML DISP.SYRIN SQ SCH (20:14)
[2018-08-05] MEDS: LATANOPROST EYE DROP 0.005% 2.5 ML BOTTLE OP SCH (21:12)
[2018-08-06] MEDS: LEVETIRACETAM (250 MG) 250 MG TABLET PO SCH ×2 (06:01→12:29)
--- NOTE | 2018-08-06 06:44 | NUR ---
MS RN NOTE PT IN STABLE CONDITION A&O X1. NO SIGNS OF SOB OR DISTRESS, NO C/O PAIN. SITTER AT BEDSIDE. ALL CURRENT NEEDS MET. SAFETY MEASURES IN PLACE: BED LOW, LOCKED, UPPER RAILS UP, FALL PRECAUTIONS, SEIZURE PRECAUTIONS, CALL LIGHT WITHIN REACH. WILL CONT TO MONITOR AND ENDORSE TO NEXT SHIFT FOR LIVE.
--- NOTE | 2018-08-06 07:10 | NUR ---
MS RN NOTES PATIENT IN BED EYES CLOSED, EASY TO AROUSE. NO ACUTE DISTRESS NOTED. BREATHING UNLABORED. NO SOB NOTED. SITTER AT BEDSIDE. IV ACCESS PATENT AND INTACT, NO REDNESS OR SWELLING NOTED. SAFETY MEASURES IN PLACE. CALL LIGHT WITHIN REACH. WILL CONTINUE TO MONITOR ACCORDINGLY.
[2018-08-06] MEDS ORDERED: LEVOTHYROXINE SODIUM 75 MCG TABLET PO SCH (07:30)
[2018-08-06 07:40] LABS: BASOPHILS % (AUTO) 0.3 % (0.0-2.0); EOSINOPHILS % (AUTO) 4.3 % (0.0-6.0); HEMATOCRIT 40 % (39-51); LYMPHOCYTES # (AUTO) 1.7 /CMM (0.8-4.8); LYMPHOCYTES % (AUTO) 40.1 % (20.0-44.0); MEAN CORPUSCULAR HGB CONC 35 g/dl (31.0-36.0); MEAN CORPUSCULAR VOLUME 95 fL (80-96); MONOCYTES # (AUTO) 0.5 /CMM (0.1-1.30); MONOCYTES % (AUTO) 11.8 % (2.0-12.0); NEUTROPHILS # (AUTO) 1.9 /CMM (1.8-8.9); NEUTROPHILS % (AUTO) 43.5 % (43.0-81.0); PLATELET COUNT (AUTO) 163 /CMM (150-450); RED BLOOD CELL COUNT(AUTO) 4.21 MIL/uL (4.5-6.0); WHITE BLOOD COUNT (AUTO) 4.3 K/uL (4.3-11.0)
[2018-08-06 07:49] LABS: CREATININE 0.7 mg/dL (0.6-1.3); POTASSIUM 3.9 mmol/L (3.5-5.1)
[2018-08-06] MEDS: PANTOPRAZOLE 40 MG TABLET.DR PO SCH (08:04)
[2018-08-06] MEDS: CARBAMAZEPINE 200 MG TABLET PO SCH ×2 (08:37→12:30)
[2018-08-06] MEDS: DIVALPROEX SODIUM 500 MG TABLET.DR PO SCH (08:37)
[2018-08-06] MEDS: CHOLECALCIFEROL 1,000 UNIT TABLET (VIT D3) PO SCH (08:37)
[2018-08-06] MEDS: clonazePAM 0.5 MG TABLET PO SCH (08:37)
--- NOTE | 2018-08-06 10:00 | NUR ---
MS RN NOTES MEDICATION VIMPAT NOT AVAILABLE AT THIS TIME PER PHARMACY, SPOKE WITH PHARMACIST PRASANNA. PERFORMANCE MANAGER MONI WOLFE NOTIFIED.
[2018-08-06] MEDS ORDERED: LACO200T2 PO (12:32)
[2018-08-06] MEDS: LACOSAMIDE 50 MG TABLET PO SCH (13:42)
--- NOTE | 2018-08-06 14:30 | NUR ---
MS ADOPTION WORKER NOTES PATIENT DISCHARGED HOME AT [facility] WITH STABLE VITAL SIGNS,ALERT ORIENTED X 1. NO ACUTE DISTRESS NOTED. BREATHING UNLABORED. NO SOB NOTED. DISCHARGE INSTRUCTIONS HANDED OVER TO EMT PERSONNEL INCLUDING NEW PRESCRIPTION. ALL BELONGINS ACCOUNTED FOR. SKIN IS INTACT. IV ACCESS REMOVED, NO BLEEDING OR REDNESS NOTED. PATIENT PICKED UP VIA AMBULANCE IN A GURNEY ACCOMPANIED BY 2 EMT PERSONNEL IN STABLE CONDITION.
== END 2018-08-06 14:30 | DRG 101 ==
LOC: ER 13:38 → TELE 15:32 → MED 08-05 16:27
PROVIDERS: ADMIT Nurse Practitioner Acute Care; ATTEND Nurse Practitioner Acute Care
DX: G40.919 Epilepsy, unspecified, intractable, without status epilepticus (principal); E87.1 Hypo-osmolality and hyponatremia; M48.02 Spinal stenosis, cervical region; F79 Unspecified intellectual disabilities; H40.9 Unspecified glaucoma; S09.90XA Unspecified injury of head, initial encounter; W07.XXXA Fall from chair, initial encounter; Y92.89 Other specified places as the place of occurrence of the external cause
CPT/HCPCS: 36415; 70450-TC; 71045-TC; 72125-TC; 80048-TC; 80061-TC; 80076-TC; 80156-TC; 80164-TC; 81000-TC; 83735-TC; 84100-TC; 84443-TC; 85025-TC; 85730-TC; 87081-TC; G0378; J1650; J1953; J2060; J7030

== ENCOUNTER 2018-11-28 09:58 | Inpatient (IN) | payer MEDICAID, MEDICARE ==
[~2018-11-28] VITALS: Ht 180.3 cm; Wt 73.0 kg
[~2018-11-28 09:58] MED LIST changes: +DIAZ2.5K3 RC; -DIVA500T2 PO; -LACO100T2 PO; +LACO200T2 PO; +LATA2.5D7 EACHEYE; -LEVE250T2 PO; +LEVE500S9 PO; -TRAV5DRO EACHEYE; +VALP250S3 PO
[2018-11-28 10:31] LABS: BASOPHILS % (AUTO) 0.9 % (0.0-2.0); EOSINOPHILS % (AUTO) 3.5 % (0.0-6.0); HEMATOCRIT 35 % (39-51); LYMPHOCYTES # (AUTO) 1.2 /CMM (0.8-4.8); LYMPHOCYTES % (AUTO) 37.9 % (20.0-44.0); MEAN CORPUSCULAR HGB CONC 35 g/dl (31.0-36.0); MEAN CORPUSCULAR VOLUME 96 fL (80-96); MONOCYTES # (AUTO) 0.5 /CMM (0.1-1.30); MONOCYTES % (AUTO) 15.1 % (2.0-12.0); NEUTROPHILS # (AUTO) 1.4 /CMM (1.8-8.9); NEUTROPHILS % (AUTO) 42.6 % (43.0-81.0); PLATELET COUNT (AUTO) 149 /CMM (150-450); RED BLOOD CELL COUNT(AUTO) 3.61 MIL/uL (4.5-6.0); WHITE BLOOD COUNT (AUTO) 3.3 K/uL (4.3-11.0)
--- NOTE | 2018-11-28 10:43 | NUR ---
URINE SENT TO LAB
[2018-11-28 10:44] LABS: ALANINE AMINOTRANSFERASE 26 U/L (12-78); ALBUMIN 3.8 g/dL (3.4-5.0); ALCOHOL, BLOOD < 3 mg/dL (0-0); ALKALINE PHOSPHATASE 61 U/L (46-116); ASPARTATE AMINOTRANSFERASE 17 U/L (15-37); BILIRUBIN,DIRECT 0.2 mg/dL (0.0-0.2); BILIRUBIN,TOTAL 0.6 mg/dL (0.2-1.0); CALCIUM, SERUM 8.7 mg/dL (8.5-10.1); CARBON DIOXIDE 29 mmol/L (21-32); CHLORIDE 98 mmol/L (98-107); CREATININE 0.8 mg/dL (0.6-1.3); GLUCOSE 88 mg/dL (74-106); POTASSIUM 3.9 mmol/L (3.5-5.1); SODIUM SERUM 132 mmol/L (136-145); TOTAL PROTEIN, SERUM 6.3 g/dL (6.4-8.2); UREA NITROGEN, BLOOD 15 mg/dL (7-18)
[2018-11-28 10:48] LABS: ACETAMINOPHEN 0 ug/ml (10-30); SALICYLATE 2.4 mg/dL (2.8-20.0)
[2018-11-28] MEDS ORDERED: LACO100T2 PO (10:51)
[2018-11-28] MEDS ORDERED: LATA2.5D7 EACHEYE (10:53)
[2018-11-28] MEDS ORDERED: OLANZAPINE 5 MG TABLET ONE (10:57)
[2018-11-28] MEDS ORDERED: OLANZAPINE 10 MG VIAL IM ONE ×2 (11:00→11:30)
[2018-11-28] MEDS ORDERED: OLANZAPINE 5 MG TABLET PO ONE (11:00)
[2018-11-28 11:01] LABS: APPEARANCE,URINE Clear (CLEAR); BILIRUBIN,URINE Negative (NEGATIVE); BLOOD, URINE Negative Ery/uL (NEGATIVE); COLOR,URINE Yellow (YELLOW); KETONES,URINE Negative (NEGATIVE); LEUKOCYTE ESTERASE ,URINE Negative (NEGATIVE); NITRITE, URINE Negative (NEGATIVE); PROTEIN,URINE Negative (NEGATIVE); UGLUCOSE Negative (NEGATIVE)
--- NOTE | 2018-11-28 11:03 | NUR ---
RECEIVED ORDER FOR ZYPREXA 5 MG PO. PT UNABLE TO TAKE MEDICATION ORAALLY. MD NOTIFIED AND ORDER TO GIVE MEDICATION IM INSTEAD OF PO
--- NOTE | 2018-11-28 11:06 | NUR ---
PATIENT AGITATED,UNABLE TO MEDICATE ORALLY, ZYPREXA GIVEN IM INSTEAD ORDERED VERBALLY
--- NOTE | 2018-11-28 11:15 | NUR ---
ASSUMED CARE OF PT. NO COMPLAINTS AT THIS TIME. SITTER AT BEDSIDE.
--- NOTE | 2018-11-28 13:13 | NUR ---
PT GETTING RESTLESS, WALKING AROUND. SITTER CAREFULLY MONITORING.
--- NOTE | 2018-11-28 13:38 | NUR ---
REPORT GIVEN TO JESUS BENAVIDES FOR 220B
--- NOTE | 2018-11-28 13:39 | NUR ---
PT TRANSFERRED TO UNIT VIA WC
[2018-11-28 13:45] VITALS: BP 121/71
[2018-11-28] MEDS ORDERED: MAG HYDROX/AL HYDROX/SIMETH 30 ML UDC PO PRN (14:30)
[2018-11-28] MEDS ORDERED: MAGNESIUM HYDROXIDE 30 ML UDC PO PRN (14:30)
--- NOTE | 2018-11-28 15:05 | NUR ---
GPS DISASSEMBLER NOTES ADMITTED A 63 Y/O MALE FROM [facility] ON 5150 HOLD FOR PSYCHOSIS. PATIENT ARRIVED TO THE UNIT AT 1340 VIA WHEELCHAIR ACCOMPANIED BY 2 E.R. STAFF. PATIENT IS A/O X2-3. PATIENT APPARENTLY SENT TO HOSPITAL DUE TO DISORGANIZE, BIZARRE, ERRATIC BEHAVIOR, NON COMPLIANT WITH CARE AND MEDS. VITAL SIGNS TAKEN ,STABLE AND RECORDED. UPON FACE TO FACE INTERVIEW, PT IS VERBALLY RESPONSIVE WITH GARBLE SPEECH, DENIES HI/SI. SAD, WELL GROOMED, UN-COOPERATIVE WITH DISORGANIZE THOUGHTS. NO C/O PAIN OR ANY DISCOMFORTS VOICED AT THIS TIME, SAME NO APPARENT DISTRESS NOTED. PHYSICAL ASSESSMENT DONE: SKIN IS INTACT. LUNGS CLEAR ON AUSCULTATION BILATERALLY. ABDOMEN SOFT, NON-TENDER WITH POSITIVE BOWEL SOUNDS ON FOUR QUADRANTS. BELONGINGS INVENTORIED AND CHECKED FOR CONTRABAND. PATIENT REFUSED/UN-ABLE TO SIGN FORM. PATIENT UNDER PSYCHIATRIC CARE OF DR. SWENSON AND MEDICAL CARE SEISMIC SURVEY ASSISTANT JOSE. PATIENT HANDBOOK AND MEDICATION GUIDE GIVEN. PATIENT WISHES FULL CODE. SAFETY MEASURES INITIATED. BED PLACED IN LOWEST LOCK POSITION. WILL CONTINUE. TO MONITOR Q15 MINS FOR SAFETY AND BEHAVIOR
[2018-11-28 16:00] VITALS: BP 121/71
--- NOTE | 2018-11-28 17:20 | NUR ---
RN-CO: Dr. Luis Manuel Oliva notified of the new admission.
--- NOTE | 2018-11-28 17:55 | NUR ---
RN NOTES LILIANE GARCIA CAME AND SEEN PT. INFORMED TO DO MED RECON.
--- NOTE | 2018-11-28 18:01 | NUR ---
RN-CO: Patient was seen and examined by Dr Oliva.
[2018-11-28] MEDS: LEVETIRACETAM SOL (5 ML) 100 MG/ML UDC PO SCH (21:47)
[2018-11-28] MEDS: TEMAZEPAM 7.5 MG CAPSULE PO PRN (21:48)
[2018-11-28] MEDS: VALPROIC ACID 250 MG/5 ML UDC PO SCH (21:53)
[2018-11-29] MEDS: TEMAZEPAM 7.5 MG CAPSULE PO PRN ×2 (01:33→21:42)
[2018-11-29 07:36] LABS: ALBUMIN 3.8 g/dL (3.4-5.0); BILIRUBIN,TOTAL 0.5 mg/dL (0.2-1.0); CREATININE 0.9 mg/dL (0.6-1.3); POTASSIUM 4.3 mmol/L (3.5-5.1); TOTAL PROTEIN, SERUM 6.4 g/dL (6.4-8.2)
[2018-11-29 08:00] VITALS: BP 144/69
[2018-11-29] MEDS ORDERED: LACOSAMIDE ORAL SOLN 50 MG/5 ML UDC PO SCH (09:00)
[2018-11-29] MEDS: LORAZEPAM 0.5 MG TABLET PO PRN (09:04)
[2018-11-29] MEDS: LEVOTHYROXINE SODIUM 50 MCG TABLET PO SCH (09:04)
[2018-11-29] MEDS: CHOLECALCIFEROL 1,000 UNIT TABLET (VIT D3) PO SCH (09:04)
[2018-11-29] MEDS: LEVETIRACETAM SOL (5 ML) 100 MG/ML UDC PO SCH ×2 (09:04→21:40)
[2018-11-29] MEDS: CARBAMAZEPINE 200 MG TABLET PO SCH ×2 (09:06→17:07)
[2018-11-29] MEDS: LACOSAMIDE 50 MG TABLET PO SCH ×2 (10:42→21:46)
[2018-11-29 16:00] VITALS: BP 129/52
--- NOTE | 2018-11-29 16:22 | NUR ---
BK called the pts brother, Alvarez ([phone]), and left a voicemail stating that the SW would like to speak to him about the pts treatment plan and discharge plan.
--- NOTE | 2018-11-29 16:23 | NUR ---
BK called [facility] and spoke to Adi ([phone]) who stated that if the pt is stable then he can return to the facility. He stated that he would come and assess the pt closer to discharge.
[2018-11-29] MEDS: risperiDONE 0.25 MG TABLET PO SCH (17:07)
[2018-11-29] MEDS ORDERED: LATANOPROST EYE DROP 0.005% 2.5 ML BOTTLE EACHEYE SCH (18:00)
[2018-11-29 20:13] VITALS: BP 111/62
[2018-11-29] MEDS: VALPROIC ACID 250 MG/5 ML UDC PO SCH (21:41)
[2018-11-30 08:00] VITALS: BP 161/103
[2018-11-30] MEDS ORDERED: OLANZAPINE 2.5 MG TABLET PO SCH (08:00)
[2018-11-30] MEDS: CHOLECALCIFEROL 1,000 UNIT TABLET (VIT D3) PO SCH (08:33)
[2018-11-30] MEDS: LEVOTHYROXINE SODIUM 50 MCG TABLET PO SCH (08:33)
[2018-11-30] MEDS: risperiDONE 0.25 MG TABLET PO SCH ×3 (08:33→16:29)
[2018-11-30] MEDS: CARBAMAZEPINE 200 MG TABLET PO SCH ×2 (08:33→16:28)
[2018-11-30] MEDS: LACOSAMIDE 50 MG TABLET PO SCH ×2 (08:34→21:55)
[2018-11-30] MEDS: LEVETIRACETAM SOL (5 ML) 100 MG/ML UDC PO SCH ×2 (09:00→21:54)
--- NOTE | 2018-11-30 11:23 | NUR ---
Alvarez ([phone]), pts brother, called the SW back and the SW conducted the remaining parts of the psychosocial assessment with him due to the pts inability to answer questions because of his disability. SW also discussed the pts treatment plan and initial discharge plan with the pt.
--- NOTE | 2018-11-30 15:43 | NUR ---
Initial Discharge Plan: Pt currently resides at [facility] located at [address] [place] [address]; ([phone]). Per pt's brother, Alvarez ([phone]), the pt will have to be placed in a facility. SW will work with the pt, the pts brother, and the MD regarding appropriate discharge planning. SW will form a safe and proper discharge.
[2018-11-30 16:00] VITALS: BP 119/76
[2018-11-30] MEDS ORDERED: LATANOPROST EYE DROP 0.005% 2.5 ML BOTTLE EACHEYE SCH (18:00)
[2018-11-30 21:23] VITALS: BP 162/75
[2018-11-30] MEDS: VALPROIC ACID 250 MG/5 ML UDC PO SCH (21:54)
[2018-11-30] MEDS: TEMAZEPAM 7.5 MG CAPSULE PO PRN (21:54)
[2018-11-30] MEDS: LORAZEPAM 0.5 MG TABLET PO PRN (21:54)
[2018-11-30] MEDS: LATANOPROST EYE DROP 0.005% 2.5 ML BOTTLE EACHEYE SCH (21:55)
[2018-12-01 06:35] LABS: BASOPHILS % (AUTO) 0.7 % (0.0-2.0); HEMATOCRIT 37 % (39-51); HEMOGLOBIN 12.9 g/dL (13.5-17.5); LYMPHOCYTES # (AUTO) 1.7 /CMM (0.8-4.8); LYMPHOCYTES % (AUTO) 38.2 % (20.0-44.0); MEAN CORPUSCULAR HGB CONC 35 g/dl (31.0-36.0); MEAN CORPUSCULAR VOLUME 96 fL (80-96); MONOCYTES # (AUTO) 0.5 /CMM (0.1-1.30); MONOCYTES % (AUTO) 10.8 % (2.0-12.0); NEUTROPHILS # (AUTO) 1.9 /CMM (1.8-8.9); NEUTROPHILS % (AUTO) 44.3 % (43.0-81.0); PLATELET COUNT (AUTO) 150 /CMM (150-450); RED BLOOD CELL COUNT(AUTO) 3.86 MIL/uL (4.5-6.0); WHITE BLOOD COUNT (AUTO) 4.4 K/uL (4.3-11.0)
[2018-12-01] MEDS: LEVOTHYROXINE SODIUM 50 MCG TABLET PO SCH (07:30)
[2018-12-01 08:00] VITALS: BP 120/81
[2018-12-01] MEDS: CARBAMAZEPINE 200 MG TABLET PO SCH ×2 (08:37→17:00)
[2018-12-01] MEDS: LEVETIRACETAM SOL (5 ML) 100 MG/ML UDC PO SCH ×2 (08:37→21:30)
[2018-12-01] MEDS: risperiDONE 0.25 MG TABLET PO SCH ×3 (08:37→17:00)
[2018-12-01] MEDS: LACOSAMIDE 50 MG TABLET PO SCH ×2 (08:38→21:31)
[2018-12-01] MEDS: CHOLECALCIFEROL 1,000 UNIT TABLET (VIT D3) PO SCH (08:38)
--- NOTE | 2018-12-01 15:23 | NUR ---
BK called Stevo ([phone]) from [facility] and inquired if the pt can be readmitted and she stated that they are at full capacity right now and therefore the pt cannot be accepted.
[2018-12-01 16:00] VITALS: BP 112/67
--- NOTE | 2018-12-01 19:55 | NUR ---
GPS RN NOTES RECEIVED ON BED SLEEPING,AROUSABLE TO VERBAL STIMULI,APPEARS ISOLATED.AMBULATE WITH STEADY GAIT.DENIES SI,WILL CONTINUE TO MONITOR BEHAVIOR
[2018-12-01 20:11] VITALS: BP 118/79
[2018-12-01] MEDS: VALPROIC ACID 250 MG/5 ML UDC PO SCH (21:32)
[2018-12-01] MEDS: LATANOPROST EYE DROP 0.005% 2.5 ML BOTTLE EACHEYE SCH (21:32)
--- NOTE | 2018-12-01 22:00 | NUR ---
GPS RN NOTES PO MEDS ADMINISTERED,TAKEN WELL
[2018-12-02 08:00] VITALS: BP 119/77
[2018-12-02] MEDS: risperiDONE 0.25 MG TABLET PO SCH ×3 (08:44→17:32)
[2018-12-02] MEDS: LEVOTHYROXINE SODIUM 50 MCG TABLET PO SCH (08:44)
[2018-12-02] MEDS: LACOSAMIDE 50 MG TABLET PO SCH ×2 (08:45→21:50)
[2018-12-02] MEDS: LEVETIRACETAM SOL (5 ML) 100 MG/ML UDC PO SCH ×2 (08:45→21:50)
[2018-12-02] MEDS: CHOLECALCIFEROL 1,000 UNIT TABLET (VIT D3) PO SCH (08:45)
[2018-12-02] MEDS: CARBAMAZEPINE 200 MG TABLET PO SCH ×2 (08:47→17:32)
--- NOTE | 2018-12-02 09:43 | NUR ---
PC Hearing Notification: SW called the pts brother, Alvarez ([phone]), and left a voicemail stating that the pt will have a hearing today and informed him about what the hearing entails and the possible outcomes.
--- NOTE | 2018-12-02 11:15 | NUR ---
RN GPS NOTES RECEIVED PATIENT ASLEEP IN BED ABLE TO AROUSE WITH VOICE AND TOUCH NO S/S OF DISTRESS OR ACUTE PAIN NOTED. PATIENT IS A/0 X1-2 .PATIENT DENIES ANY SUICIDE IDEATIONS OR HOMICIDAL IDEATIONS AT THIS TIME. PATIENT HAS NO NEEDS AT THIS TIME . SAFETY PRECAUTIONS IN PLACE BED IN LOW POSITION SIDE RAILS UP X2 FOR SAFETY, BED IN LOW LOCKED POSITION.COMPLIANT WITH MEDICATION CALL LINO WITHIN REACH WILL CONTINUE TO MONITOR ACCORDINGLY
[2018-12-02 16:00] VITALS: BP 120/66
[2018-12-02 20:00] VITALS: BP 126/72
[2018-12-02] MEDS: LATANOPROST EYE DROP 0.005% 2.5 ML BOTTLE EACHEYE SCH (21:50)
[2018-12-02] MEDS: TEMAZEPAM 7.5 MG CAPSULE PO PRN (21:50)
[2018-12-02] MEDS: VALPROIC ACID 250 MG/5 ML UDC PO SCH (21:51)
[2018-12-03 08:00] VITALS: BP 130/79
[2018-12-03] MEDS: CHOLECALCIFEROL 1,000 UNIT TABLET (VIT D3) PO SCH (08:43)
[2018-12-03] MEDS: LEVETIRACETAM SOL (5 ML) 100 MG/ML UDC PO SCH ×2 (08:43→20:53)
[2018-12-03] MEDS: LACOSAMIDE 50 MG TABLET PO SCH ×2 (08:43→20:52)
[2018-12-03] MEDS: LEVOTHYROXINE SODIUM 50 MCG TABLET PO SCH (08:44)
[2018-12-03] MEDS: risperiDONE 0.25 MG TABLET PO SCH ×3 (08:44→17:57)
[2018-12-03] MEDS: CARBAMAZEPINE 200 MG TABLET PO SCH ×2 (08:49→17:57)
--- NOTE | 2018-12-03 12:48 | NUR ---
BK called [facility] and spoke to Adi ([phone]) and informed him that the pt will be discharged on Thursday. He stated that he would like the pts transportation to be provided by the hospital and the SW stated that she will inform him about that on Thursday.
[2018-12-03 16:00] VITALS: BP 121/78
[2018-12-03 20:11] VITALS: BP 133/74
[2018-12-03] MEDS: TEMAZEPAM 7.5 MG CAPSULE PO PRN (20:53)
[2018-12-03] MEDS: LATANOPROST EYE DROP 0.005% 2.5 ML BOTTLE EACHEYE SCH (20:53)
[2018-12-03] MEDS: VALPROIC ACID 250 MG/5 ML UDC PO SCH (20:53)
[2018-12-04 06:24] LABS: BASOPHILS % (AUTO) 0.7 % (0.0-2.0); HEMATOCRIT 39 % (39-51); HEMOGLOBIN 13.3 g/dL (13.5-17.5); LYMPHOCYTES # (AUTO) 1.8 /CMM (0.8-4.8); LYMPHOCYTES % (AUTO) 42.4 % (20.0-44.0); MEAN CORPUSCULAR HGB CONC 35 g/dl (31.0-36.0); MEAN CORPUSCULAR VOLUME 96 fL (80-96); MONOCYTES # (AUTO) 0.5 /CMM (0.1-1.30); MONOCYTES % (AUTO) 10.7 % (2.0-12.0); NEUTROPHILS # (AUTO) 1.7 /CMM (1.8-8.9); NEUTROPHILS % (AUTO) 40.2 % (43.0-81.0); PLATELET COUNT (AUTO) 146 /CMM (150-450); RED BLOOD CELL COUNT(AUTO) 4.03 MIL/uL (4.5-6.0); WHITE BLOOD COUNT (AUTO) 4.3 K/uL (4.3-11.0)
[2018-12-04 06:38] LABS: CREATININE 0.8 mg/dL (0.6-1.3); POTASSIUM 4.3 mmol/L (3.5-5.1)
[2018-12-04 08:00] VITALS: BP 119/64
[2018-12-04] MEDS: LEVOTHYROXINE SODIUM 50 MCG TABLET PO SCH (09:06)
[2018-12-04] MEDS: LEVETIRACETAM SOL (5 ML) 100 MG/ML UDC PO SCH ×2 (09:06→21:22)
[2018-12-04] MEDS: LACOSAMIDE 50 MG TABLET PO SCH ×2 (09:06→21:21)
[2018-12-04] MEDS: risperiDONE 0.25 MG TABLET PO SCH ×3 (09:06→16:20)
[2018-12-04] MEDS: CARBAMAZEPINE 200 MG TABLET PO SCH ×2 (09:07→16:20)
[2018-12-04] MEDS: CHOLECALCIFEROL 1,000 UNIT TABLET (VIT D3) PO SCH (10:51)
[2018-12-04 16:00] VITALS: BP 103/73
[2018-12-04 20:10] VITALS: BP 122/67
[2018-12-04] MEDS: TEMAZEPAM 7.5 MG CAPSULE PO PRN (21:21)
[2018-12-04] MEDS: VALPROIC ACID 250 MG/5 ML UDC PO SCH (21:22)
[2018-12-04] MEDS: LATANOPROST EYE DROP 0.005% 2.5 ML BOTTLE EACHEYE SCH (21:22)
[2018-12-05 08:00] VITALS: BP 99/64
[2018-12-05] MEDS: LACOSAMIDE 50 MG TABLET PO SCH ×2 (08:21→21:39)
[2018-12-05] MEDS: CHOLECALCIFEROL 1,000 UNIT TABLET (VIT D3) PO SCH (08:21)
[2018-12-05] MEDS: risperiDONE 0.25 MG TABLET PO SCH ×3 (08:21→16:39)
[2018-12-05] MEDS: LEVOTHYROXINE SODIUM 50 MCG TABLET PO SCH (08:21)
[2018-12-05] MEDS: CARBAMAZEPINE 200 MG TABLET PO SCH ×2 (08:22→16:39)
[2018-12-05] MEDS: LEVETIRACETAM SOL (5 ML) 100 MG/ML UDC PO SCH ×2 (08:22→21:37)
[2018-12-05 16:00] VITALS: BP 118/73
--- NOTE | 2018-12-05 19:30 | NUR ---
GPS RN NOTE, RECEIVED PATIENT AWAKE AND IN BED, NO S/S OR COMPLAINTS OF PAIN AT THIS TIME. PATIENT IS DISPLAYING NO S/S OF APPARENT DISTRESS AT THIS TIME. PATIENT BREATHING IS UNLABORED WITH EQUAL RISE AND FALL OF THE CHEST. PATIENT IS ALERT AND ORIENTED X 2 ON ROOM AIR WITH A SPO2 OF 99 %. PATIENT IS MED COMPLAINT, DISORGANIZED, ANXIOUS, COOPERATIVE, AND NEEDS REORIENTATION. PATIENT SKIN IS INTACT. PATIENT DENIES SUICIDE AND HOMICIDAL IDEATIONS AT THIS TIME. PATIENT ASSISTED WITH TURNING AND REPOSITIONING Q2HR AND PRN FOR COMFORT AND CIRCULATION. PATIENT HAS NO NEEDS AT THIS TIME. PATIENT EDUCATED ON THE USE OF THE CALL LINO. PATIENT BED SIDE RAILS ARE UP X 2 FOR SAFETY, BED IS LOCKED, AND LOW WILL CONTINUE TO MONITOR AND MAINTAIN SAFETY.
[2018-12-05 20:43] VITALS: BP 112/67
[2018-12-05] MEDS: VALPROIC ACID 250 MG/5 ML UDC PO SCH (21:38)
[2018-12-05] MEDS: LATANOPROST EYE DROP 0.005% 2.5 ML BOTTLE EACHEYE SCH (21:39)
[2018-12-06] MEDS: LEVOTHYROXINE SODIUM 50 MCG TABLET PO SCH (07:30)
[2018-12-06 08:00] VITALS: BP 122/79
[2018-12-06] MEDS: CHOLECALCIFEROL 1,000 UNIT TABLET (VIT D3) PO SCH (08:58)
[2018-12-06] MEDS: CARBAMAZEPINE 200 MG TABLET PO SCH ×2 (08:58→17:00)
[2018-12-06] MEDS: LEVETIRACETAM SOL (5 ML) 100 MG/ML UDC PO SCH ×2 (08:58→22:34)
[2018-12-06] MEDS: LORAZEPAM 0.5 MG TABLET PO PRN (08:59)
[2018-12-06] MEDS: risperiDONE 0.25 MG TABLET PO SCH ×3 (08:59→17:00)
[2018-12-06] MEDS: LACOSAMIDE 50 MG TABLET PO SCH ×2 (08:59→22:34)
[2018-12-06 09:55] VITALS: BP 169/90
--- NOTE | 2018-12-06 09:55 | NUR ---
RN NOTE:AT 0929 PATIENT HAD SEIZURE ,RAPID RESPONSE CALLED BP 169/90,P 53,O2 SAT 88% T 98.7 ,BLOOD GLUCOSE 91,RAPID RESPONSE TEAM FLOOR BROKER ,RT ,ICU NURSE .AT 09:55 BP 124/90, P 98,O2 SAT 94%,BLOOD GLUCOSE 91 .CALLED AT 0930 ,PATIENT SEEN BY AT 10:30 .WILL CONTINUE TO MONITOR.
[2018-12-06 16:00] VITALS: BP 119/72
[2018-12-06 20:26] VITALS: BP 128/79
[2018-12-06] MEDS ORDERED: VALPROIC ACID 250 MG/5 ML UDC PO SCH (22:00)
[2018-12-06] MEDS: LATANOPROST EYE DROP 0.005% 2.5 ML BOTTLE EACHEYE SCH (22:35)
[2018-12-07 06:26] LABS: BASOPHILS % (AUTO) 0.4 % (0.0-2.0); EOSINOPHILS % (AUTO) 3.6 % (0.0-6.0); HEMATOCRIT 37 % (39-51); HEMOGLOBIN 12.6 g/dL (13.5-17.5); LYMPHOCYTES % (AUTO) 36.4 % (20.0-44.0); MEAN CORPUSCULAR HGB CONC 34 g/dl (31.0-36.0); MEAN CORPUSCULAR VOLUME 96 fL (80-96); MONOCYTES # (AUTO) 0.6 /CMM (0.1-1.30); MONOCYTES % (AUTO) 11.3 % (2.0-12.0); NEUTROPHILS # (AUTO) 2.6 /CMM (1.8-8.9); NEUTROPHILS % (AUTO) 48.3 % (43.0-81.0); PLATELET COUNT (AUTO) 150 /CMM (150-450); RED BLOOD CELL COUNT(AUTO) 3.83 MIL/uL (4.5-6.0); WHITE BLOOD COUNT (AUTO) 5.4 K/uL (4.3-11.0)
[2018-12-07 06:39] LABS: CARBAMAZEPINE (TEGRETOL) 5.5 ug/ml (4-11.9)
[2018-12-07 08:00] VITALS: BP 100/64
[2018-12-07] MEDS: LEVETIRACETAM SOL (5 ML) 100 MG/ML UDC PO SCH ×2 (08:14→21:27)
[2018-12-07] MEDS: CARBAMAZEPINE 200 MG TABLET PO SCH ×2 (08:15→17:04)
[2018-12-07] MEDS: risperiDONE 0.25 MG TABLET PO SCH ×3 (08:15→17:04)
[2018-12-07] MEDS: LACOSAMIDE 50 MG TABLET PO SCH ×2 (08:15→21:27)
[2018-12-07] MEDS: CHOLECALCIFEROL 1,000 UNIT TABLET (VIT D3) PO SCH (08:15)
[2018-12-07] MEDS: LEVOTHYROXINE SODIUM 50 MCG TABLET PO SCH (08:15)
[2018-12-07] MEDS: VALPROIC ACID 250 MG/5 ML UDC PO SCH ×2 (11:58→21:27)
--- NOTE | 2018-12-07 12:33 | NUR ---
ELECTRIC FRYING PAN REPAIRER NOTE: PATIENT IS AN 88 YEAR OLD MALE DISCHARGED TO [facility] LOCATED AT [address] [facility] [address] . PATIENT IS IN STABLE CONDITION AT THE TIME OF DISCHARGE. SELECTIVE COMPLIANCE WITH MEDICATION MANAGEMENT. COOPERATIVE WITH PLAN OF CARE. VSS. NO ACUTE DISTRESS NOTED. ATTENDED TO NEEDS. DENIES SI/HI VAH AT THE TIME OF DISCHARGE. BEHAVIOR IMPROVED. PSYCHIATRIC TREATMENT PLANS MET. MEDICAL TREATMENT PLANS DEFERRED FOR CONTINUAL MONITORING. EDUCATED PATIENT ABOUT AFTERCARE AND PROVIDED COPY. MEDICATIONS RECONCILED WITH LILIANE RAVI AND DR SAMUEL WITH ORDERS TO DC PSYCHIATRIC HOLD. WOUND PICTURES TAKEN AND DOCUMENTED IN THE CHART. REPORT WAS GIVEN TO FACILITY. PATIENT REFUSED TO SIGN DISCHARGE PAPERWORK. RETURNED PERSONAL BELONGINGS TO PATIENT. CONTACTED DR HERRERA AND INFORMED HIM ABOUT THE EKG RESULTS WITH NNO. FOR FOLLOW UP WITH PSYCHIATRI[place] [address] [facility] [address] RYAN LOCATED AT [address] [facility] [address]. PATIENT LEFT [facility] GPS UNIT VIA [facility] AT 4795.
[2018-12-07 16:00] VITALS: BP 120/69
--- NOTE | 2018-12-07 19:30 | NUR ---
GPS RN NOTE, RECEIVED PATIENT AWAKE AND IN BED, NO S/S OR COMPLAINTS OF PAIN AT THIS TIME. PATIENT IS DISPLAYING NO S/S OF APPARENT DISTRESS AT THIS TIME. PATIENT BREATHING IS UNLABORED WITH EQUAL RISE AND FALL OF THE CHEST. PATIENT IS ALERT AND ORIENTED X 2 ON ROOM AIR WITH A SPO2 OF 99 %. PATIENT IS MED COMPLAINT, DISORGANIZED, ANXIOUS, COOPERATIVE, AND NEEDS REORIENTATION. PATIENT DENIES SUICIDE AND HOMICIDAL IDEATIONS AT THIS TIME. PATIENT ASSISTED WITH TURNING AND REPOSITIONING Q2HR AND PRN FOR COMFORT AND CIRCULATION. PATIENT HAS NO NEEDS AT THIS TIME. PATIENT EDUCATED ON THE USE OF THE CALL LINO. PATIENT BED SIDE RAILS ARE UP X 2 FOR SAFETY, BED IS LOCKED, AND LOW WILL CONTINUE TO MONITOR AND MAINTAIN SAFETY.
[2018-12-07 20:49] VITALS: BP 132/75
[2018-12-07] MEDS: LATANOPROST EYE DROP 0.005% 2.5 ML BOTTLE EACHEYE SCH (21:29)
[2018-12-08 08:00] VITALS: BP 115/84
[2018-12-08] MEDS: LEVETIRACETAM SOL (5 ML) 100 MG/ML UDC PO SCH ×2 (08:02→20:11)
[2018-12-08] MEDS: VALPROIC ACID 250 MG/5 ML UDC PO SCH ×2 (08:02→20:10)
[2018-12-08] MEDS: CARBAMAZEPINE 200 MG TABLET PO SCH ×2 (08:03→16:50)
[2018-12-08] MEDS: CHOLECALCIFEROL 1,000 UNIT TABLET (VIT D3) PO SCH (08:03)
[2018-12-08] MEDS: risperiDONE 0.25 MG TABLET PO SCH ×3 (08:03→16:50)
[2018-12-08] MEDS: LEVOTHYROXINE SODIUM 50 MCG TABLET PO SCH (08:03)
[2018-12-08] MEDS: LACOSAMIDE 50 MG TABLET PO SCH ×2 (08:03→20:11)
--- NOTE | 2018-12-08 09:55 | NUR ---
BK called the pts brother, Alvarez ([phone]), and informed him that the pt was not discharged on Thursday and that this was because the pt was reacting to his medications and changes needed to be made. BK stated that she would inform him once there is a discharge date.
--- NOTE | 2018-12-08 10:04 | NUR ---
BK called [facility] ([phone]) and left a voicemail for Adi stating that the pt has not been discharged yet due to his medications and that the SW will inform him when that will occur.
--- NOTE | 2018-12-08 14:55 | NUR ---
Goal: Patient will attend group being held today from 11am -11:45 in the activities room and participate and/or actively listen to peers and be respectful. Intervention: SW facilitated group with patients regarding the goal or positive outcome/s pt. would like to see happen as a result of their stay in [facility]. SW used reflecting skills and validated the patient on the importance of self-care for the well-being of patient�s health post-discharge. Response: Patient was agreeable to participating in group. Patient expressed he enjoys practicing his adventism as it promotes his mental wellness. Pt. stated �reading the gospel gives me peace, comfort and encourages me�. Patient remained calm and cooperative and was respectful of his peers throughout group session. Plan: Patient will be invited to attend next director of social media marketing group held. Addendum: 12/08/18 at 1609 by DANIELE BOURGEOIS Social Service Group Session Note
[2018-12-08 16:00] VITALS: BP 132/70
[2018-12-08 19:56] VITALS: BP 124/68
[2018-12-08] MEDS: LATANOPROST EYE DROP 0.005% 2.5 ML BOTTLE EACHEYE SCH (21:21)
[2018-12-09 08:00] VITALS: BP 120/65
[2018-12-09] MEDS: LEVETIRACETAM SOL (5 ML) 100 MG/ML UDC PO SCH (08:11)
[2018-12-09] MEDS: VALPROIC ACID 250 MG/5 ML UDC PO SCH (08:12)
[2018-12-09] MEDS: CHOLECALCIFEROL 1,000 UNIT TABLET (VIT D3) PO SCH (08:13)
[2018-12-09] MEDS: risperiDONE 0.25 MG TABLET PO SCH ×3 (08:13→17:04)
[2018-12-09] MEDS: LACOSAMIDE 50 MG TABLET PO SCH (08:14)
[2018-12-09] MEDS: CARBAMAZEPINE 200 MG TABLET PO SCH ×2 (08:15→17:04)
[2018-12-09] MEDS: LEVOTHYROXINE SODIUM 50 MCG TABLET PO SCH (08:15)
--- NOTE | 2018-12-09 11:00 | NUR ---
RN-CO: DR SWENSON SEEN AND EXAMINED THE PATIENT WITH ORDERS TO DISCHARGE PATIENT AND DISCONTINUE HOLD. NOTED.
--- NOTE | 2018-12-09 13:07 | NUR ---
BK called [facility] and spoke to Adi ([phone]) and informed him that the pt is being discharged today and that he will be arriving via taxi. He stated that he would prepare the pts admission.
--- NOTE | 2018-12-09 15:05 | NUR ---
BK called the pts brother, Alvarez ([phone]), and informed him via voicemail message that the pt will be discharged back to [facility] today.
--- NOTE | 2018-12-09 15:06 | NUR ---
Discharge Note: Pt was discharged to [facility] ([facility] care [facility] for developmentally disabled) located at [address] [place] [address]; ([phone]). Pt was transported via taxi around 4pm. Fax of records was sent to: [phone]. Upon discharge, the pt appeared to be in a euthymic mood and presented with a distressed affect. Pt denied both suicidal and homicidal ideation as well as auditory and visual hallucinations. Pt will seek psychiatric services at [facility] located at [address] [place] [address]; . Pt will be under the care of his mule developer, Dr. Katie [place], located at [address] [place] [address]; .
[2018-12-09 16:19] VITALS: BP 109/70
--- NOTE | 2018-12-09 18:17 | NUR ---
MECHANICAL ENGINEERING TEACHER NOTE: LONNIE PATIENT IS A 63 YEAR OLD MALE THAT WAS DISCHARGED TO [facility] [place] [address] [facility] [id number] . PATIENT IS IN STABLE CONIDITION. COMPLIANT WITH MEDICATION MANAGEMENT. COOPERATIVE WITH PLAN OF CARE. VSS. NO ACUTE DISTRESS NOTED. NO COMPLAINTS. DENIES SI/HI VAH AT THE TIME OF DISCHARGE. BEHAVIOR IMPROVED. PSYCHIATRIC TREATMENT PLANS MET. MEDICAL TREATMENT PLANS DEFERRED FOR CONTINUAL MONITORING. EDUCATED PATIENT ABOUT AFTERCARE WITH COPY PROVIDED. RETURNED PERSONAL BELONGINGS TO PATIENT. DISCHARGE PAPERWORK EXPLAINED AND SIGNED. SKIN INTACT. MEDICATIONS RECONCILED WITH LILIANE MOREL AND DR SWENSON WITH PSYCHIATRIC DISCHARGE ORDERS. FOR FOLLOW UP WITH PSYCHIATRIST IN [facility] LOCATED AT [address] [facility] [address] [address] OSCAR PANDA LOCATED AT [address] [facility] [phone] IN 1 WEEK. PATIENT LEFT [facility] GPS UNIT VIA [facility]AXI AT 1800 . PATIENT WAS ESCORTED DOWN.
== END 2018-12-09 18:00 | disposition home or self-care (01) | DRG 885 ==
LOC: ER 09:58 → GPS 13:09
PROVIDERS: ADMIT Psychiatry & Neurology Psychosomatic Medicine; ATTEND Nurse Practitioner Acute Care
DX: F29 Unspecified psychosis not due to a substance or known physiological condition (principal); F01.50 Vascular dementia, unspecified severity, without behavioral disturbance, psychotic disturbance, mood disturbance, and anxiety; F70 Mild intellectual disabilities; G93.41 Metabolic encephalopathy; E87.1 Hypo-osmolality and hyponatremia; R62.50 Unspecified lack of expected normal physiological development in childhood; G40.909 Epilepsy, unspecified, not intractable, without status epilepticus; H40.9 Unspecified glaucoma; E03.9 Hypothyroidism, unspecified; D72.819 Decreased white blood cell count, unspecified; E86.1 Hypovolemia
CPT/HCPCS: 36415; 80048-TC; 80053-TC; 80061-TC; 80076-TC; 80156-TC; 80164-TC; 80305; 81000-TC; 82962-TC; 85025-TC; 87081-TC; G0480; J1953; J3490

== ENCOUNTER 2019-01-14 17:53 | Emergency (ER) | payer MEDICARE ==
[~2019-01-14] VITALS: Ht 177.8 cm; Wt 77.1 kg
[~2019-01-14 17:53] MED LIST changes: -CHLO473M5 MM; -CLON0.5T12 PO; -DIAZ2.5K3 RC; +LACO100T2 PO; -LACO200T2 PO
--- NOTE | 2019-01-14 17:56 | NUR ---
SEEN AND EXAMINED BY .
[2019-01-14] MEDS ORDERED: LEVETIRACETAM (500MG) 500 MG in IV NS 0.9% 100 ML IV ONE (18:00)
--- NOTE | 2019-01-14 18:10 | NUR ---
PT BIBRA FROM [facility] C/O WITNESSED SEIZURE, +HEAD LACERATION, PT IS AAOX1, NOT IN RESPIRATORY DISTRESS, NOTED RESTLESSNESS, HOOKED TO MONITOR, KEPT RESTED AND COMFORATBLE, WILL CONTINUE TO MONITOR.
--- NOTE | 2019-01-14 18:15 | NUR ---
BLOOD DRAWNED AND SENT TO LAB.
[2019-01-14] MEDS ORDERED: LORAZEPAM INJ 2 MG/ML VIAL ONE (18:19)
[2019-01-14 18:21] LABS: BASOPHILS % (AUTO) 0.6 % (0.0-2.0); EOSINOPHILS % (AUTO) 1.3 % (0.0-6.0); HEMATOCRIT 34 % (39-51); HEMOGLOBIN 11.7 g/dL (13.5-17.5); LYMPHOCYTES # (AUTO) 1.9 /CMM (0.8-4.8); LYMPHOCYTES % (AUTO) 25.7 % (20.0-44.0); MEAN CORPUSCULAR HGB CONC 34 g/dl (31.0-36.0); MEAN CORPUSCULAR VOLUME 98 fL (80-96); MONOCYTES # (AUTO) 0.9 /CMM (0.1-1.30); MONOCYTES % (AUTO) 11.5 % (2.0-12.0); NEUTROPHILS # (AUTO) 4.6 /CMM (1.8-8.9); NEUTROPHILS % (AUTO) 60.9 % (43.0-81.0); PLATELET COUNT (AUTO) 179 /CMM (150-450); RED BLOOD CELL COUNT(AUTO) 3.51 MIL/uL (4.5-6.0); WHITE BLOOD COUNT (AUTO) 7.5 K/uL (4.3-11.0)
[2019-01-14 18:28] LABS: CALCIUM, SERUM 9.3 mg/dL (8.5-10.1); CREATININE 1.1 mg/dL (0.6-1.3); POTASSIUM 4.3 mmol/L (3.5-5.1)
[2019-01-14] MEDS ORDERED: LORAZEPAM INJ 2 MG/ML VIAL IV ONE (18:30)
--- NOTE | 2019-01-14 18:35 | NUR ---
PT IS WHEELED TO CT SCAN VIA [facility].
--- NOTE | 2019-01-15 02:21 | NUR ---
SPOKE WITH LATOSHA FROM [facility] AND INFORMED PT WILL BE RETURNING TO FACILTY
--- NOTE | 2019-01-15 02:28 | NUR ---
CALLED [facility] FOR TRANSPORTATION. ETA 0400, TRIP NUMBER [id number]
[2019-01-15 05:32] VITALS: BP 127/83
== END 2019-01-15 05:32 | disposition home or self-care (01) ==
LOC: ER 17:55
DX: S01.01XA Laceration without foreign body of scalp, initial encounter (principal); T81.30XA Disruption of wound, unspecified, initial encounter; G40.909 Epilepsy, unspecified, not intractable, without status epilepticus; Z79.899 Other long term (current) drug therapy; W05.0XXA Fall from non-moving wheelchair, initial encounter; Y93.89 Activity, other specified; Y92.89 Other specified places as the place of occurrence of the external cause; Y99.8 Other external cause status
CPT/HCPCS: 12001; 12020; 36415; 70450; 80048; 80156; 85025; 87081; 93005; 96365; 96375; 99284; J1953; J2060; J7030

== ENCOUNTER 2019-01-24 17:11 | Emergency (ER) | payer MEDICARE ==
[~2019-01-24] VITALS: Ht 177.8 cm; Wt 77.1 kg
[2019-01-24 17:20] VITALS: BP 136/88
== END 2019-01-24 17:45 | disposition home or self-care (01) ==
LOC: ER 17:16
DX: S01.01XD Laceration without foreign body of scalp, subsequent encounter (principal); G40.909 Epilepsy, unspecified, not intractable, without status epilepticus; F84.0 Autistic disorder; Z79.899 Other long term (current) drug therapy; X58.XXXD Exposure to other specified factors, subsequent encounter

== ENCOUNTER 2019-03-28 18:50 | Inpatient (IN) | payer MEDICARE, MEDICAID ==
[~2019-03-28] VITALS: Ht 177.8 cm; Wt 78.0 kg
[2019-03-28 19:35] LABS: BASOPHILS # (AUTO) 0.1 /CMM (0.0-0.2); BASOPHILS % (AUTO) 0.5 % (0.0-2.0); HEMATOCRIT 36 % (39-51); HEMOGLOBIN 12.1 g/dL (13.5-17.5); LYMPHOCYTES # (AUTO) 1.7 /CMM (0.8-4.8); LYMPHOCYTES % (AUTO) 14.5 % (20.0-44.0); MEAN CORPUSCULAR HGB CONC 33 g/dl (31.0-36.0); MEAN CORPUSCULAR VOLUME 96 fL (80-96); MONOCYTES # (AUTO) 1.6 /CMM (0.1-1.30); MONOCYTES % (AUTO) 13.9 % (2.0-12.0); NEUTROPHILS # (AUTO) 8.2 /CMM (1.8-8.9); NEUTROPHILS % (AUTO) 70.1 % (43.0-81.0); PLATELET COUNT (AUTO) 139 /CMM (150-450); RED BLOOD CELL COUNT(AUTO) 3.78 MIL/uL (4.5-6.0); WHITE BLOOD COUNT (AUTO) 11.8 K/uL (4.3-11.0)
[2019-03-28 19:39] LABS: NITRITE, URINE Negative (NEGATIVE); UGLUCOSE Negative (NEGATIVE)
[2019-03-28 19:50] LABS: ALANINE AMINOTRANSFERASE 21 U/L (12-78); ALBUMIN 3.7 g/dL (3.4-5.0); ALCOHOL, BLOOD < 3 mg/dL (0-0); ALKALINE PHOSPHATASE 59 U/L (46-116); ASPARTATE AMINOTRANSFERASE 18 U/L (15-37); BILIRUBIN,DIRECT 0.2 mg/dL (0.0-0.2); BILIRUBIN,TOTAL 0.6 mg/dL (0.2-1.0); CALCIUM, SERUM 9.5 mg/dL (8.5-10.1); CARBON DIOXIDE 28 mmol/L (21-32); CHLORIDE 104 mmol/L (98-107); GLUCOSE 86 mg/dL (74-106); POTASSIUM 4.9 mmol/L (3.5-5.1); SODIUM SERUM 138 mmol/L (136-145); TOTAL PROTEIN, SERUM 7.1 g/dL (6.4-8.2); UREA NITROGEN, BLOOD 28 mg/dL (7-18)
[2019-03-28 19:54] LABS: ACETAMINOPHEN < 2 ug/ml (10-30)
--- NOTE | 2019-03-28 19:57 | NUR ---
DR CALDERON AT BEDSIDE FOR EXAM.
[2019-03-28] MEDS ORDERED: LIDOCAINE 2% JEL UROJET 10 ML MM ONE ×2 (20:54→23:30)
[2019-03-28] MEDS ORDERED: IV NS 0.9% 1,000 ML BAG IV ONE (21:00)
[2019-03-28 21:53] LABS: APPEARANCE,URINE Slightly Cloudy (CLEAR); BILIRUBIN,URINE MODERATE (NEGATIVE); BLOOD, URINE Trace-intact Ery/uL (NEGATIVE); COLOR,URINE Dark (YELLOW); KETONES,URINE 40 (NEGATIVE); LEUKOCYTE ESTERASE ,URINE Trace (NEGATIVE); PH,URINE 5.5 (5.0-8.0); PROTEIN,URINE 30 mg/dl (NEGATIVE)
[2019-03-28 21:54] LABS: BACTERIA,URINE Few /HPF (None Seen); SQUAMOUS EPITHELIAL CELL,UR Few /HPF (None Seen)
--- NOTE | 2019-03-28 22:35 | NUR ---
[facility] STATES IS ON THE WAY
[2019-03-28] MEDS ORDERED: MELA3TAB63 PO (23:39)
[2019-03-28] MEDS ORDERED: DIVA-78 PO (23:39)
[2019-03-28] MEDS ORDERED: RISP0.5T20 PO (23:39)
--- NOTE | 2019-03-28 23:50 | NUR ---
PT TO [facility] VIA ANTOINETTE.
[2019-03-29] MEDS ORDERED: MAG HYDROX/AL HYDROX/SIMETH 30 ML UDC PO PRN (02:00)
[2019-03-29] MEDS ORDERED: LORAZEPAM 0.5 MG TABLET PO PRN (02:00)
[2019-03-29] MEDS ORDERED: BLOOD SUGAR DIAGNOSTIC 1 EACH STRIP IN ONE (02:00)
[2019-03-29] MEDS ORDERED: ACETAMINOPHEN 325 MG TABLET PO PRN (02:00)
[2019-03-29] MEDS ORDERED: MAGNESIUM HYDROXIDE 30 ML UDC PO PRN (02:00)
[2019-03-29 02:24] VITALS: BP 153/88
--- NOTE | 2019-03-29 06:35 | NUR ---
GPS RN NOTES ADMITTED A 64 YO MALE, BROUGHT INTO GPS VIA GURNEY FROM ER ON HOLD 5150/GD. PER HOLD PT IS DISORIENTED IN ALL SPHERES EXCEPT HIS NAME. POOR HISTORIAN, POOR INSIGHT AND POOR IMPULSE CONTROL, IMPAIRED JUDGEMENT. PT HAS NO IDEA WHY HE IS NOT TAKING HIS MEDICATION OR NOT EATING. PT HAS EPISODES OF AGITATION. PT IS UNABLE TO CARE FOR SELF. UPON FACE TO FACE ASSESSMENT PT IS SELECTIVELY MUTE, AGITATED, COMBATIVE, ANXIOUS, DISORGANIZED AND DISORIENTED. REFUSED MRSA SWAP, AND BLOOD SUGAR TEST. PT NOT ABLE TO SIGN ADMISSION PAPERS. PT UNDER THE CARE OF LEELA PSYCHIATRIST AND MONI INTERNAL MEDICINE. MEDS HAVE BEEN RECONCILED. CARE PLAN STARTED, SAFETY PRECAUTION INITIATED. BED IN LOWEST POSITION AND LOCKED. Q 15 MINUTES CHECK INITIATED. WILL MONITOR FOR SAFETY, MOOD AND BEHAVIOR. WILL ENDORSE TO ONCOMING DAY SHIFT NURSE.
--- NOTE | 2019-03-29 07:28 | NUR ---
pt has redness and rashes on bilateral lower extremities, back and perineal areas. Wound and dietary consult have been done.
[2019-03-29] MEDS: LEVOTHYROXINE SODIUM 50 MCG TABLET PO SCH (07:30)
[2019-03-29 08:00] VITALS: BP 119/86
[2019-03-29] MEDS: DIVALPROEX SODIUM 500 MG TABLET.DR PO SCH ×2 (08:30→16:58)
[2019-03-29] MEDS: CARBAMAZEPINE 200 MG TABLET PO SCH ×3 (08:30→16:59)
[2019-03-29] MEDS: LACOSAMIDE 50 MG TABLET PO SCH ×2 (08:31→22:00)
[2019-03-29] MEDS: CHOLECALCIFEROL 1,000 UNIT TABLET (VIT D3) PO SCH (08:31)
--- NOTE | 2019-03-29 08:39 | NUR ---
WOUND CARE CONSULT: PT REFUSED SKIN ASSESSMENT. WILL SEE PT PT CONDITION PERMITS.
[2019-03-29] MEDS ORDERED: Medication Not On Formulary EA (Levetiracetam 500 MG) PO SCH (09:00)
[2019-03-29] MEDS: risperiDONE-M 0.5 MG TAB.RAPDIS PO SCH ×3 (09:30→17:00)
--- NOTE | 2019-03-29 10:41 | NUR ---
WOUND CARE: PT NOTED TO BE INCONTINENT OF URINE BUT IS ABLE TO REPOSITION HIMSELF IN BED. PER NURSING STAFF, PT IS AMBULATORY. DRY SKIN NOTED TO LOWER LEGS, PRESENT ON ADMISSION. RECOMMENDATIONS MADE FOR SKIN PROTECTION. DISCUSSED WITH NURSING STAFF. WILL SEE PRN. PELAYO IN AGREEMENT WITH PLAN OF CARE.
[2019-03-29] MEDS: Z GUARD REMEDY 2 OZ OINT TP SCH (12:53)
[2019-03-29] MEDS: MINERAL OIL/PETROLATUM,WHITE 120 GM JAR TP SCH (12:54)
[2019-03-29 16:00] VITALS: BP 128/67
[2019-03-29] MEDS: CEPHALEXIN MONOHYDRATE 500 MG CAPSULE PO SCH (17:00)
[2019-03-29] MEDS: LATANOPROST EYE DROP 0.005% 2.5 ML BOTTLE EACHEYE SCH (18:00)
[2019-03-29 20:04] VITALS: BP 104/72
[2019-03-29] MEDS: TEMAZEPAM 7.5 MG CAPSULE PO PRN (22:00)
[2019-03-29] MEDS: BENZTROPINE MESYLATE (1 MG) 1 MG TABLET PO SCH (22:00)
[2019-03-30 07:08] LABS: BASOPHILS % (AUTO) 0.4 % (0.0-2.0); EOSINOPHILS % (AUTO) 5.8 % (0.0-6.0); HEMATOCRIT 40 % (39-51); HEMOGLOBIN 13.3 g/dL (13.5-17.5); LYMPHOCYTES # (AUTO) 1.3 /CMM (0.8-4.8); MEAN CORPUSCULAR HGB CONC 34 g/dl (31.0-36.0); MEAN CORPUSCULAR VOLUME 95 fL (80-96); MONOCYTES # (AUTO) 0.8 /CMM (0.1-1.30); MONOCYTES % (AUTO) 13.5 % (2.0-12.0); NEUTROPHILS # (AUTO) 3.5 /CMM (1.8-8.9); NEUTROPHILS % (AUTO) 58.3 % (43.0-81.0); PLATELET COUNT (AUTO) 162 /CMM (150-450); RED BLOOD CELL COUNT(AUTO) 4.14 MIL/uL (4.5-6.0); WHITE BLOOD COUNT (AUTO) 5.9 K/uL (4.3-11.0)
[2019-03-30 07:23] LABS: CALCIUM, SERUM 9.2 mg/dL (8.5-10.1); CREATININE 0.9 mg/dL (0.6-1.3); POTASSIUM 4.1 mmol/L (3.5-5.1)
[2019-03-30 08:00] VITALS: BP 137/73
[2019-03-30] MEDS: LEVOTHYROXINE SODIUM 50 MCG TABLET PO SCH (08:51)
[2019-03-30] MEDS: LACOSAMIDE 50 MG TABLET PO SCH ×2 (08:51→21:09)
[2019-03-30] MEDS: CHOLECALCIFEROL 1,000 UNIT TABLET (VIT D3) PO SCH (08:52)
[2019-03-30] MEDS: MINERAL OIL/PETROLATUM,WHITE 120 GM JAR TP SCH (08:54)
[2019-03-30] MEDS: Z GUARD REMEDY 2 OZ OINT TP PRN ×4 (08:57→09:11)
[2019-03-30] MEDS: Z GUARD REMEDY 2 OZ OINT TP SCH (09:12)
--- NOTE | 2019-03-30 10:03 | NUR ---
Family Contact: SW called the pts brother, Alvarez ([phone]), and left him a message on his voicemail stating that the SW would like to discuss the pts treatment and initial discharge plan.
--- NOTE | 2019-03-30 10:04 | NUR ---
Facility Contact: BK called [facility] director Carlos ([phone]) and left a message on his voicemail inquiring about whether or not the pt can return to the facility.
--- NOTE | 2019-03-30 10:05 | NUR ---
Initial Discharge Plan: Pt currently resides at [facility] located at [address] [place] [address]; ([phone]). BK called the facility and left a message for Carlos regarding whether or not the pt will be readmitted. BK will work with the MD and the pt regarding appropriate discharge planning. SW will form a safe and proper discharge.
--- NOTE | 2019-03-30 10:11 | NUR ---
Facility Contact: [facility] director Carlos ([phone]) called the SW and stated that they will take the pt back if he stable upon discharge. He stated that the pt may require a higher level of care but he is still interested in accepting the pt back.
[2019-03-30] MEDS: CARBAMAZEPINE 200 MG TABLET PO SCH ×2 (12:29→17:02)
[2019-03-30] MEDS: risperiDONE-M 0.5 MG TAB.RAPDIS PO SCH ×2 (12:29→17:01)
[2019-03-30 16:00] VITALS: BP 124/74
[2019-03-30] MEDS: DIVALPROEX SODIUM 500 MG TABLET.DR PO SCH (17:01)
[2019-03-30] MEDS: CEPHALEXIN MONOHYDRATE 500 MG CAPSULE PO SCH (17:01)
[2019-03-30] MEDS: LATANOPROST EYE DROP 0.005% 2.5 ML BOTTLE EACHEYE SCH (18:00)
[2019-03-30 20:23] VITALS: BP 133/77
[2019-03-30 20:25] VITALS: BP 132/77
[2019-03-30] MEDS: TEMAZEPAM 7.5 MG CAPSULE PO PRN (21:09)
[2019-03-30] MEDS: BENZTROPINE MESYLATE (1 MG) 1 MG TABLET PO SCH (21:09)
--- NOTE | 2019-03-31 00:06 | NUR ---
BRINE PROCESS OPERATOR NOTES CHECKED PT IN HIS ROOM AND SAW HIM SLEEPING COMFORTABLY IN BED WITHOUT ANY ACUTE DISTRESS NOTED AFTER SLEEP MEDICATION GIVEN EARLIER. KEPT HIM WARM AND COMFORTABLE AT ALL TIMES. BED ALARM SET FOR PT SAFETY. WILL CONTINUE MONITORING Q 15 MINUTES FOR SAFETY.
--- NOTE | 2019-03-31 06:59 | NUR ---
supervisor reactor fueling notes pt woke up and noted confusion but not agitated. morning care done. started to walked and but noted unsteady. put him in sergio chair by 2 sample box maker for pt safety. compliance with his medication and ate well. slept well and stable rene the night. all due meds given and all needs met. endorse to am nurse for continuity of care.
--- NOTE | 2019-03-31 07:38 | NUR ---
rn notes pt awake and ambulatory, noted with confusion, reoriented and redirected. able to follow commands., conversant , no distress noted. safety reinforced. will monitor behavior.
[2019-03-31 08:00] VITALS: BP 116/68
[2019-03-31] MEDS: DIVALPROEX SODIUM 500 MG TABLET.DR PO SCH ×2 (08:48→16:25)
[2019-03-31] MEDS: CEPHALEXIN MONOHYDRATE 500 MG CAPSULE PO SCH ×2 (08:48→16:25)
[2019-03-31] MEDS: LACOSAMIDE 50 MG TABLET PO SCH ×2 (08:48→21:23)
[2019-03-31] MEDS: CHOLECALCIFEROL 1,000 UNIT TABLET (VIT D3) PO SCH (08:48)
[2019-03-31] MEDS: LEVOTHYROXINE SODIUM 50 MCG TABLET PO SCH (08:48)
[2019-03-31] MEDS: risperiDONE-M 0.5 MG TAB.RAPDIS PO SCH ×3 (08:49→16:25)
[2019-03-31] MEDS: CARBAMAZEPINE 200 MG TABLET PO SCH ×3 (08:49→16:24)
[2019-03-31] MEDS: Z GUARD REMEDY 2 OZ OINT TP SCH (08:52)
[2019-03-31] MEDS: MINERAL OIL/PETROLATUM,WHITE 120 GM JAR TP SCH (08:52)
--- NOTE | 2019-03-31 14:50 | NUR ---
SS GROUP NOTE Goal: Patient will attend group held today from 1:00pm-3:00pm in the activities room and participate and/or actively listen to peers and be respectful. Intervention: SW facilitated group session with patients regarding Sensory activity for the idays. SW explored what tastes, smells, sounds, and sights come to mind when thinking about the holiday season and gratefulness. Response: Patient was agreeable to participating in group session. Patient presented lethargic, confused but cooperative throughout session. The patient was respectful towards their peers when they shared. Pt. fell asleep during group. Plan: Patient will be invited to attend next administrator social welfare group session held.
[2019-03-31 16:00] VITALS: BP 138/73
[2019-03-31] MEDS: LATANOPROST EYE DROP 0.005% 2.5 ML BOTTLE EACHEYE SCH (17:42)
--- NOTE | 2019-03-31 18:53 | NUR ---
RN CLOSING NOTES PT IN THE ACTIVITY ROOM, WITHDRAWN. COMPLIANT WITH MEDS. CONFUSED. NO SIGNIFICANT CHANGE IN BEHAVIOR NOTED. NO SIGNS OF SUICIDAL IDEATION NOTED
[2019-03-31] MEDS: BENZTROPINE MESYLATE (1 MG) 1 MG TABLET PO SCH (21:21)
[2019-03-31 21:48] VITALS: BP 137/72
[2019-03-31] MEDS: TEMAZEPAM 7.5 MG CAPSULE PO PRN (22:31)
[2019-04-01 08:00] VITALS: BP 130/88
[2019-04-01] MEDS: CARBAMAZEPINE 200 MG TABLET PO SCH ×3 (08:01→16:16)
[2019-04-01] MEDS: LACOSAMIDE 50 MG TABLET PO SCH ×3 (08:01→21:50)
[2019-04-01] MEDS: CEPHALEXIN MONOHYDRATE 500 MG CAPSULE PO SCH ×2 (08:01→16:17)
[2019-04-01] MEDS: DIVALPROEX SODIUM 500 MG TABLET.DR PO SCH ×2 (08:01→16:17)
[2019-04-01] MEDS: risperiDONE-M 0.5 MG TAB.RAPDIS PO SCH ×3 (08:02→16:17)
[2019-04-01] MEDS: LEVOTHYROXINE SODIUM 50 MCG TABLET PO SCH (08:02)
[2019-04-01] MEDS: CHOLECALCIFEROL 1,000 UNIT TABLET (VIT D3) PO SCH (08:02)
[2019-04-01] MEDS: MINERAL OIL/PETROLATUM,WHITE 120 GM JAR TP SCH (09:28)
[2019-04-01] MEDS: Z GUARD REMEDY 2 OZ OINT TP SCH (09:29)
[2019-04-01] MEDS: Z GUARD REMEDY 2 OZ OINT TP PRN (09:29)
--- NOTE | 2019-04-01 15:08 | NUR ---
SS GROUP NOTE 04/01/19 Goal: Patient will attend group held today from 1:00pm in the activities room and participate and/or actively listen to peers and be respectful. Intervention: SW facilitated group session with patients regarding Mindful Breathing exercise. SW educated the pt. on mindfulness purpose and benefits. Response: Patient sat in group exercise: Mindful Breathing. Patient presented lethargic but cooperative throughout session. The patient was respectful towards their peers when they shared. Plan: Patient will be invited to attend next social worker group session held.
--- NOTE | 2019-04-01 15:09 | NUR ---
SNF Referral: BK faxed a referral to [facility] with attention to Karol to the fax number: [phone].
[2019-04-01 16:00] VITALS: BP 130/68
[2019-04-01 20:11] VITALS: BP 133/80
[2019-04-01] MEDS: BENZTROPINE MESYLATE (1 MG) 1 MG TABLET PO SCH ×2 (21:37→22:00)
[2019-04-01] MEDS: TEMAZEPAM 7.5 MG CAPSULE PO PRN ×2 (21:38→22:10)
[2019-04-01] MEDS: LATANOPROST EYE DROP 0.005% 2.5 ML BOTTLE EACHEYE SCH (22:00)
--- NOTE | 2019-04-01 22:17 | NUR ---
PT REFUSED PM MEDS VIMPAT 50 MG 2 TABS 100MG, COGENTIN 1MGL, 0.5MG/HALF TAB, XALATAN 2.5 ML. PT OFFERED THREE TIMES BUT STILL REFUSED STATING " I DON'T WANT THEM ANYMORE, AND STARTED CRYING" . EDUCATED PT ON THE BENEFITS AND RISKS OF MEDICATION. PT ALSO ASKED FOR RESTORIL 7.5MG FOR SLEEP BUT REFUSED TAKING IT ALSO. WILL CONTINUE TO MONITOR.
[2019-04-02 08:00] VITALS: BP 125/70
[2019-04-02] MEDS: risperiDONE-M 0.5 MG TAB.RAPDIS PO SCH ×3 (08:46→16:15)
[2019-04-02] MEDS: LACOSAMIDE 50 MG TABLET PO SCH ×2 (08:46→20:39)
[2019-04-02] MEDS: CEPHALEXIN MONOHYDRATE 500 MG CAPSULE PO SCH ×2 (08:46→16:14)
[2019-04-02] MEDS: CHOLECALCIFEROL 1,000 UNIT TABLET (VIT D3) PO SCH (08:46)
[2019-04-02] MEDS: DIVALPROEX SODIUM 500 MG TABLET.DR PO SCH ×2 (08:47→16:14)
[2019-04-02] MEDS: CARBAMAZEPINE 200 MG TABLET PO SCH ×3 (08:47→16:14)
[2019-04-02] MEDS: LEVOTHYROXINE SODIUM 50 MCG TABLET PO SCH (08:58)
[2019-04-02] MEDS: Z GUARD REMEDY 2 OZ OINT TP SCH (09:01)
[2019-04-02] MEDS: MINERAL OIL/PETROLATUM,WHITE 120 GM JAR TP SCH (09:01)
[2019-04-02 16:00] VITALS: BP_SYST 115; BP_SYST 139; BP_DIAS 79; BP_DIAS 80
--- NOTE | 2019-04-02 19:21 | NUR ---
GPS/RN NOTE: AWAKE, ALERT, AND CONFUSED. DISORIENTED, DISORGANIZED. NO AGITATION NOTED AT THIS TIME. WILL MONITOR FOR SAFETY AND BEHAVIOR DURING THE SHIFT.
[2019-04-02 20:00] VITALS: BP 122/72
[2019-04-02] MEDS: LATANOPROST EYE DROP 0.005% 2.5 ML BOTTLE EACHEYE SCH (21:35)
[2019-04-02] MEDS: BENZTROPINE MESYLATE (1 MG) 1 MG TABLET PO SCH (21:36)
--- NOTE | 2019-04-03 02:52 | NUR ---
GPS/RN NOTE: PATIENT AWAKE, UNABLE TO GO BACK TO SLEEP, ATIVAN 0.5 MG ATB PO GIVEN.
[2019-04-03] MEDS: LEVOTHYROXINE SODIUM 50 MCG TABLET PO SCH (07:42)
[2019-04-03 08:00] VITALS: BP 115/70
[2019-04-03] MEDS: risperiDONE-M 0.5 MG TAB.RAPDIS PO SCH ×2 (08:37→16:24)
[2019-04-03] MEDS: CEPHALEXIN MONOHYDRATE 500 MG CAPSULE PO SCH ×2 (08:37→16:24)
[2019-04-03] MEDS: DIVALPROEX SODIUM 500 MG TABLET.DR PO SCH ×2 (08:37→16:24)
[2019-04-03] MEDS: LACOSAMIDE 50 MG TABLET PO SCH ×2 (08:38→21:45)
[2019-04-03] MEDS: CARBAMAZEPINE 200 MG TABLET PO SCH ×3 (08:38→16:24)
[2019-04-03] MEDS: CHOLECALCIFEROL 1,000 UNIT TABLET (VIT D3) PO SCH (08:38)
[2019-04-03] MEDS: MINERAL OIL/PETROLATUM,WHITE 120 GM JAR TP SCH (08:41)
[2019-04-03] MEDS: Z GUARD REMEDY 2 OZ OINT TP SCH (08:41)
[2019-04-03 16:00] VITALS: BP 119/74
[2019-04-03 19:56] VITALS: BP 133/78
[2019-04-03] MEDS: BENZTROPINE MESYLATE (1 MG) 1 MG TABLET PO SCH (21:45)
[2019-04-03] MEDS: LATANOPROST EYE DROP 0.005% 2.5 ML BOTTLE EACHEYE SCH (22:00)
--- NOTE | 2019-04-04 06:39 | NUR ---
SKIN ASSESSMENT/ PICTURE TAKEN AND IN CHART
[2019-04-04] MEDS: LEVOTHYROXINE SODIUM 50 MCG TABLET PO SCH (07:36)
[2019-04-04 08:00] VITALS: BP 96/61
[2019-04-04] MEDS: DIVALPROEX SODIUM 500 MG TABLET.DR PO SCH ×2 (08:37→17:05)
[2019-04-04] MEDS: CEPHALEXIN MONOHYDRATE 500 MG CAPSULE PO SCH ×2 (08:37→17:04)
[2019-04-04] MEDS: CARBAMAZEPINE 200 MG TABLET PO SCH ×3 (08:38→17:05)
[2019-04-04] MEDS: risperiDONE-M 0.5 MG TAB.RAPDIS PO SCH ×2 (08:38→17:05)
[2019-04-04] MEDS: MINERAL OIL/PETROLATUM,WHITE 120 GM JAR TP SCH (08:39)
[2019-04-04] MEDS: LACOSAMIDE 50 MG TABLET PO SCH ×2 (08:39→21:00)
[2019-04-04] MEDS: Z GUARD REMEDY 2 OZ OINT TP SCH (08:39)
[2019-04-04] MEDS: CHOLECALCIFEROL 1,000 UNIT TABLET (VIT D3) PO SCH (08:39)
--- NOTE | 2019-04-04 09:16 | NUR ---
SNF Contact: Susan ([phone]) from [facility] stated that the pt was accepted to their facility once ready for discharge.
--- NOTE | 2019-04-04 15:12 | NUR ---
GROUP NOTE: SW assessed pts ability to participate in group therapy discussing "discharge planning." Pt was pacing the hallway and stated he did not want to participate in group. Pt did not engage with SW.
[2019-04-04 16:00] VITALS: BP 109/60
[2019-04-04 20:56] VITALS: BP 118/62
[2019-04-04] MEDS: LATANOPROST EYE DROP 0.005% 2.5 ML BOTTLE EACHEYE SCH (21:40)
[2019-04-04] MEDS: BENZTROPINE MESYLATE (1 MG) 1 MG TABLET PO SCH (23:04)
[2019-04-04] MEDS: TEMAZEPAM 7.5 MG CAPSULE PO PRN (23:24)
[2019-04-05 08:00] VITALS: BP 95/62
[2019-04-05] MEDS: LACOSAMIDE 50 MG TABLET PO SCH ×2 (10:36→21:04)
[2019-04-05] MEDS: CARBAMAZEPINE 200 MG TABLET PO SCH ×3 (10:36→18:10)
[2019-04-05] MEDS: DIVALPROEX SODIUM 500 MG TABLET.DR PO SCH ×2 (10:36→18:09)
[2019-04-05] MEDS: LEVOTHYROXINE SODIUM 50 MCG TABLET PO SCH (10:36)
[2019-04-05] MEDS: CHOLECALCIFEROL 1,000 UNIT TABLET (VIT D3) PO SCH (10:37)
[2019-04-05] MEDS: CEPHALEXIN MONOHYDRATE 500 MG CAPSULE PO SCH (10:37)
[2019-04-05] MEDS: risperiDONE-M 0.5 MG TAB.RAPDIS PO SCH ×2 (11:04→18:09)
[2019-04-05] MEDS: MINERAL OIL/PETROLATUM,WHITE 120 GM JAR TP SCH (11:06)
[2019-04-05] MEDS: Z GUARD REMEDY 2 OZ OINT TP SCH (11:06)
--- NOTE | 2019-04-05 15:30 | NUR ---
Group Note: SW encouraged the pt to attend group therapy on 04/05/19 at 2pm on the topic of discharge planning. SW assessed pts ability to participate in group therapy. Pt is unable to at this time due to cognitive impairment and not being able to engage in conversation. Pt is developmentally delayed. BK explained that the pt would be discharged on back to the facility that he came from and the pt displayed understanding by nodding his head.
[2019-04-05 16:00] VITALS: BP 134/72
--- NOTE | 2019-04-05 18:00 | NUR ---
UP AND DOWN BETWEEN RM. AND DINING RM.NO ACUTE DISTRESS.WILL CONT. TO MONITOR CLOSELY REGARDING SAFETY AND BEHAVIOR.
[2019-04-05 20:21] VITALS: BP 112/73
[2019-04-05] MEDS: LATANOPROST EYE DROP 0.005% 2.5 ML BOTTLE EACHEYE SCH (21:04)
[2019-04-05] MEDS: BENZTROPINE MESYLATE (1 MG) 1 MG TABLET PO SCH (21:05)
[2019-04-06] MEDS: LEVOTHYROXINE SODIUM 50 MCG TABLET PO SCH (07:39)
[2019-04-06 08:00] VITALS: BP 114/75
[2019-04-06] MEDS: DIVALPROEX SODIUM 500 MG TABLET.DR PO SCH ×2 (08:07→16:37)
[2019-04-06] MEDS: risperiDONE-M 0.5 MG TAB.RAPDIS PO SCH ×2 (08:07→16:37)
[2019-04-06] MEDS: CARBAMAZEPINE 200 MG TABLET PO SCH ×3 (08:08→16:37)
[2019-04-06] MEDS: LACOSAMIDE 50 MG TABLET PO SCH ×2 (08:08→21:03)
[2019-04-06] MEDS: CHOLECALCIFEROL 1,000 UNIT TABLET (VIT D3) PO SCH (08:08)
[2019-04-06] MEDS: Z GUARD REMEDY 2 OZ OINT TP SCH (08:38)
[2019-04-06] MEDS: MINERAL OIL/PETROLATUM,WHITE 120 GM JAR TP SCH (08:38)
--- NOTE | 2019-04-06 11:48 | NUR ---
Facility Contact: Troy ([phone]) from [facility] called the SW and stated that he would like the pt to be discharged back to their facility and wanted an update. SW stated that she will inform him once there is a set discharge.
--- NOTE | 2019-04-06 12:54 | NUR ---
Family Contact: BK called Chidi ([phone]), pts brother, and informed him that the pt will be discharged the following day back to [facility].
--- NOTE | 2019-04-06 12:56 | NUR ---
Facility Contact: BK called Troy ([phone]) from [facility] and left a message on his voicemail stating that the pt will be discharged tomorrow.
--- NOTE | 2019-04-06 12:58 | NUR ---
Facility Contact: BK called [facility] director Carlos ([phone]) and informed him that the pt will be discharged the following day and stated that transportation cannot be arranged. BK stated that she will arrange it and it was requested that the pt be discharged after 3pm.
[2019-04-06 16:00] VITALS: BP 123/68
[2019-04-06 20:29] VITALS: BP 143/91
[2019-04-06] MEDS: BENZTROPINE MESYLATE (1 MG) 1 MG TABLET PO SCH (21:03)
[2019-04-06] MEDS: LATANOPROST EYE DROP 0.005% 2.5 ML BOTTLE EACHEYE SCH (21:20)
[2019-04-07] MEDS: LEVOTHYROXINE SODIUM 50 MCG TABLET PO SCH (07:24)
[2019-04-07 07:39] LABS: BASOPHILS % (AUTO) 0.4 % (0.0-2.0); EOSINOPHILS % (AUTO) 4.6 % (0.0-6.0); HEMATOCRIT 37 % (39-51); HEMOGLOBIN 12.5 g/dL (13.5-17.5); LYMPHOCYTES # (AUTO) 1.8 /CMM (0.8-4.8); LYMPHOCYTES % (AUTO) 35.6 % (20.0-44.0); MEAN CORPUSCULAR HGB CONC 34 g/dl (31.0-36.0); MEAN CORPUSCULAR VOLUME 94 fL (80-96); MONOCYTES # (AUTO) 0.5 /CMM (0.1-1.30); MONOCYTES % (AUTO) 10.5 % (2.0-12.0); NEUTROPHILS # (AUTO) 2.5 /CMM (1.8-8.9); NEUTROPHILS % (AUTO) 48.9 % (43.0-81.0); PLATELET COUNT (AUTO) 232 /CMM (150-450); RED BLOOD CELL COUNT(AUTO) 3.95 MIL/uL (4.5-6.0); WHITE BLOOD COUNT (AUTO) 5.2 K/uL (4.3-11.0)
[2019-04-07 07:58] LABS: CARBAMAZEPINE (TEGRETOL) 7.7 ug/ml (4-11.9)
[2019-04-07 08:00] VITALS: BP 132/79
[2019-04-07 08:05] LABS: ALBUMIN 3.4 g/dL (3.4-5.0); BILIRUBIN,TOTAL 0.2 mg/dL (0.2-1.0); CALCIUM, SERUM 9.1 mg/dL (8.5-10.1); CREATININE 0.8 mg/dL (0.6-1.3); POTASSIUM 4.2 mmol/L (3.5-5.1); TOTAL PROTEIN, SERUM 6.7 g/dL (6.4-8.2)
[2019-04-07] MEDS: LACOSAMIDE 50 MG TABLET PO SCH (08:16)
[2019-04-07] MEDS: CARBAMAZEPINE 200 MG TABLET PO SCH ×2 (08:16→12:55)
[2019-04-07] MEDS: Z GUARD REMEDY 2 OZ OINT TP SCH (08:17)
[2019-04-07] MEDS: DIVALPROEX SODIUM 500 MG TABLET.DR PO SCH (08:17)
[2019-04-07] MEDS: CHOLECALCIFEROL 1,000 UNIT TABLET (VIT D3) PO SCH (08:17)
[2019-04-07] MEDS: risperiDONE-M 0.5 MG TAB.RAPDIS PO SCH (08:17)
[2019-04-07] MEDS: MINERAL OIL/PETROLATUM,WHITE 120 GM JAR TP SCH (08:17)
--- NOTE | 2019-04-07 08:54 | NUR ---
DR. LOUIS GAVE AN ORDER TO D/C HOLD AND D/C TO [facility] AND TO FOLLOW UP WITH PSYCH AND MEDICAL DOCTORS.
--- NOTE | 2019-04-07 09:19 | NUR ---
Facility Contact: BK called Troy ([phone]) from [facility] and he stated that he would be able to arrange transportation by having a staff member greens picker the pt around 4-5 pm.
--- NOTE | 2019-04-07 11:29 | NUR ---
DR. PAGE MADE AWARE OF THE DISCHARGE AND PROVIDED A PRESCRIPTIONS.
--- NOTE | 2019-04-07 14:32 | NUR ---
Discharge Note: Pt was discharged to [facility] (intermediate care facility for developmentally disabled) located at [id number] [place] [id number]; ([phone]). Pt was picked up by staff member from the facility at around 4pm. Fax of records was sent to: [phone]. Upon discharge, the pt appeared to be in a euthymic mood and presented with a distressed affect. Pts brother, Chidi ([phone]), was made aware of this discharge. Pt denied both suicidal and homicidal ideation as well as auditory and visual hallucinations. Pt will seek psychiatric services at [facility] located at [address] [place] [address]; ; fax of records was sent to: . Pt will be under the care of his die forger, Dr. Katie Wood, located at [address] [place] [address]; .
--- NOTE | 2019-04-07 15:34 | NUR ---
GPS ASSOCIATE DIRECTOR OF DEVELOPMENT NOTE: PATIENT IS A 64 YEAR OLD MALE DISCHARGED TO [facility]. PATIENT IS IN STABLE CONDITION. VSS. NO ACUTE DISTRESS NOTED. NO COMPLAINTS. COMPLIANT WITH MEDICATION MANAGEMENT. COOPERATIVE WITH PLAN OF CARE. PSYCHIATRIC TREATMENT PLANS MET. MEDICAL TREATMENT PLANS DEFERRED FOR CONTINUAL MONITORING. DENIES SI/HI VAH AT THE TIME OF DISCHARGE. SKIN CHECK DONE WITH WOUND PICTURES IN CHART. EDUCATED PATIENT AND CAREGIVER ABOUT AFTERCARE WITH COPY PROVIDED. RETURNED PERSONAL BELONGINGS TO PATIENT. MEDICATIONS RECONCILED WITH ALONG WITH PSYCHIATRIC DISCHARGE ORDERS. DISCHARGE PAPERWORK SIGNED. FOR FOLLOW UP WITH PSYCHIATRIST AND TIMBER SKIDDER WITHIN 1 WEEK. PATIENT LEFT THE [facility] GPS WITH ESCORT FROM FACILITY.
== END 2019-04-07 14:45 | disposition home or self-care (01) | DRG 885 ==
LOC: ER 18:54 → GPS 23:25
PROVIDERS: ADMIT Psychiatry & Neurology Psychosomatic Medicine
DX: F29 Unspecified psychosis not due to a substance or known physiological condition (principal); F01.50 Vascular dementia, unspecified severity, without behavioral disturbance, psychotic disturbance, mood disturbance, and anxiety; G92 Toxic encephalopathy; E87.1 Hypo-osmolality and hyponatremia; N39.0 Urinary tract infection, site not specified; F41.9 Anxiety disorder, unspecified; F20.9 Schizophrenia, unspecified; F84.0 Autistic disorder; D69.6 Thrombocytopenia, unspecified; D64.9 Anemia, unspecified; E03.9 Hypothyroidism, unspecified; H40.9 Unspecified glaucoma; E86.0 Dehydration; D72.829 Elevated white blood cell count, unspecified; R31.9 Hematuria, unspecified; Z79.899 Other long term (current) drug therapy; Z91.14 Patient's other noncompliance with medication regimen; R56.9 Unspecified convulsions; B96.89 Other specified bacterial agents as the cause of diseases classified elsewhere
CPT/HCPCS: 36415; 80048-TC; 80053-TC; 80061-TC; 80076-TC; 80156-TC; 80164-TC; 80305; 81000-TC; 84443-TC; 85025-TC; 87081-TC; 97116-TC; 97530-TC; G0480; J3490; J7030

== ENCOUNTER 2021-03-15 21:35 | Inpatient (IN) | payer MEDICARE, OTHER ==
[~2021-03-15] VITALS: Ht 177.8 cm; Wt 83.0 kg
[~2021-03-15 21:35] MED LIST changes: +DIVA-78 PO; +LATA2.5D15 EACHEYE; -LATA2.5D7 EACHEYE; +MELA3TAB41 PO; +RISP0.5T65 PO; -VALP250S3 PO
[2021-03-15] MEDS ORDERED: LIDOCAINE 2% JEL UROJET 10 ML MM ONE (21:44)
[2021-03-15] MEDS ORDERED: ACETAMINOPHEN 650 MG/SUPP.RECT RC ONE ×2 (21:50→22:00)
--- NOTE | 2021-03-15 21:50 | NUR ---
BIBRA 102 FROM [facility] C/O ALTERED AND FEVER PER RA, HAD SEIZURE AT 1PM TODAY. PT A&OX0 WITH NON LABORED BREATHING.
[2021-03-15] MEDS ORDERED: IV NS 0.9% 500 ML BAG IV ONE (22:00)
--- NOTE | 2021-03-15 22:00 | NUR ---
BLOOD COLLECTED AND SENT TO LAB
--- NOTE | 2021-03-15 22:01 | NUR ---
URINE COLLECTED AND SENT TO LAB
--- NOTE | 2021-03-15 22:21 | NUR ---
COOLING MEASURES FOR INCREASED TEMP.
[2021-03-15 22:33] LABS: BILIRUBIN,URINE NEGATIVE (NEGATIVE); COLOR,URINE YELLOW (YELLOW); LEUKOCYTE ESTERASE ,URINE NEGATIVE (NEGATIVE); NITRITE, URINE NEGATIVE (NEGATIVE); PROTEIN,URINE NEGATIVE (NEGATIVE); UGLUCOSE NEGATIVE (NEGATIVE)
[2021-03-15 22:35] LABS: BASOPHILS % (AUTO) 0.5 % (0.0-2.0); EOSINOPHILS % (AUTO) 0.3 % (0.0-6.0); HEMATOCRIT 39 % (39-51); HEMOGLOBIN 13.3 g/dL (13.5-17.5); LYMPHOCYTES # (AUTO) 1.5 K/uL (0.8-4.8); LYMPHOCYTES % (AUTO) 23.1 % (20.0-44.0); MEAN CORPUSCULAR HGB CONC 34 g/dl (31.0-36.0); MEAN CORPUSCULAR VOLUME 96 fL (80-96); MONOCYTES # (AUTO) 0.7 K/uL (0.1-1.30); MONOCYTES % (AUTO) 11.2 % (2.0-12.0); NEUTROPHILS # (AUTO) 4.2 K/uL (1.8-8.9); NEUTROPHILS % (AUTO) 64.9 % (43.0-81.0); PLATELET COUNT (AUTO) 153 K/uL (150-450); RED BLOOD CELL COUNT(AUTO) 4.13 MIL/uL (4.5-6.0); WHITE BLOOD COUNT (AUTO) 6.5 K/uL (4.3-11.0)
[2021-03-15] MEDS ORDERED: ASPIRIN 300 MG/SUPP.RECT RC ONE ×2 (23:00→23:11)
[2021-03-15 23:23] LABS: POTASSIUM 4.1 mmol/L (3.5-5.1)
[2021-03-15 23:28] LABS: ALBUMIN 4.1 g/dL (3.4-5.0); BILIRUBIN,DIRECT 0.2 mg/dL (0.0-0.2); BILIRUBIN,TOTAL 0.6 mg/dL (0.2-1.0); TOTAL PROTEIN, SERUM 7.5 g/dL (6.4-8.2)
[2021-03-16 00:30] LABS: ALCOHOL, BLOOD < 3 mg/dL (0-0)
[2021-03-16 00:31] LABS: ACETAMINOPHEN 0 ug/ml (10-30)
[2021-03-16] MEDS ORDERED: LORAZEPAM INJ 2 MG/ML VIAL IV PRN (02:30)
[2021-03-16] MEDS ORDERED: ACETAMINOPHEN 325 MG TABLET PO PRN (02:30)
[2021-03-16] MEDS ORDERED: ENOXAPARIN SODIUM 40 MG/0.4 ML DISP.SYRIN SQ SCH (02:30)
[2021-03-16] MEDS ORDERED: ONDANSETRON HCL/PF 4 MG/2 ML VIAL IVP PRN (02:30)
[2021-03-16] MEDS ORDERED: Z GUARD REMEDY 2 OZ OINT TP PRN (02:30)
[2021-03-16] MEDS ORDERED: VANCOMYCIN 1.5 GM in IV D5W 500ml IV ONE (04:30)
[2021-03-16] MEDS ORDERED: ZOSYN IVPB 3.375 G in IV D5W 50ml IV ONE (04:30)
--- NOTE | 2021-03-16 05:12 | NUR ---
PATIENT ALERT AND ORIENTED RESTING COMFORTABLY
[2021-03-16] MEDS: PIPERACILLIN /TAZOBACTAM 3.375 G in IV D5W 50 ML IV SCH ×4 (06:00→23:20)
[2021-03-16] MEDS ORDERED: D5W IV ONE (07:00)
[2021-03-16] MEDS ORDERED: VANCOMYCIN HCL IV ONE (07:00)
[2021-03-16] MEDS ORDERED: PIPERACILLIN /TAZOBACTAM 3.375 G VIAL IV ONE (07:00)
[2021-03-16 08:00] VITALS: BP 118/70
[2021-03-16] MEDS ORDERED: LEVETIRACETAM (250 MG) 250 MG TABLET PO ONE (09:15)
[2021-03-16] MEDS ORDERED: LEVOTHYROXINE SODIUM 50 MCG TABLET ONE (09:15)
[2021-03-16] MEDS ORDERED: DIVALPROEX SODIUM 500 MG TABLET.DR PO ONE (09:15)
[2021-03-16] MEDS ORDERED: risperiDONE 0.25 MG TABLET PO ONE (09:15)
[2021-03-16] MEDS ORDERED: CARBAMAZEPINE 200 MG TABLET ONE (09:19)
[2021-03-16] MEDS ORDERED: CHOLECALCIFEROL 1,000 UNIT TABLET (VIT D3) ONE (09:19)
[2021-03-16] MEDS ORDERED: LACOSAMIDE 50 MG TABLET ONE (09:19)
[2021-03-16] MEDS: CHOLECALCIFEROL 1,000 UNIT TABLET (VIT D3) PO SCH (09:20)
[2021-03-16] MEDS: DIVALPROEX SODIUM 500 MG TABLET.DR PO SCH ×2 (09:20→17:12)
[2021-03-16] MEDS: LEVOTHYROXINE SODIUM 50 MCG TABLET PO SCH (09:20)
[2021-03-16] MEDS: LEVETIRACETAM SOL (5 ML) 100 MG/ML UDC PO SCH ×2 (09:21→21:36)
[2021-03-16] MEDS: LACOSAMIDE 50 MG TABLET PO SCH ×2 (09:21→21:35)
[2021-03-16] MEDS: CARBAMAZEPINE 200 MG TABLET PO SCH ×3 (09:21→17:12)
[2021-03-16] MEDS: risperiDONE 0.25 MG TABLET PO SCH ×3 (09:31→17:12)
--- NOTE | 2021-03-16 10:48 | NUR ---
GOT BED 106
--- NOTE | 2021-03-16 11:11 | NUR ---
REPORT GIVEN TO NURSE NAZARIO
--- NOTE | 2021-03-16 11:40 | NUR ---
THE PATIENT IS TRANSFERED TO ROOM 106 IN STABLE CONDITION AND PER ACLS POLICY.
[2021-03-16 12:00] VITALS: BP 107/64
[2021-03-16] MEDS: VANCOMYCIN 1 GM in IV D5W 250 ML IV SCH ×2 (14:02→21:41)
[2021-03-16 16:00] VITALS: BP 112/69
[2021-03-16] MEDS: LATANOPROST EYE DROP 0.005% 2.5 ML BOTTLE EACHEYE SCH (18:00)
--- NOTE | 2021-03-16 18:52 | NUR ---
NURSE CLOSING NOTE PATIENT ADMITTED FROM ED. DX: SEPSIS. FULL CODE . NKA. CHEST X-RAY AND HEAD CT WAS DONE. NOTING WAS FOUND TO BE OF SIGNIFICANT. FOLLOW UP LAB WORK. PATIENT TOOK ALL PILLS WHOLE. ALL SAFETY MEASURE IN PLACE. BED ON THE LOWEST POSITION WITH HOB ELEVATED AND 3 SIDE RAIL UP. CALL LIGHT WITHIN REACH. BED ALARM ON. WILL CONTINUE TO MONITOR AND GIVE REPORT TO ON COMING NURSE.
--- NOTE | 2021-03-16 19:28 | NUR ---
NURSE NOTE DID NOT ADMINISTER LATANOPROST EYE DROP. NOT AVAILABLE IN [facility] CELL
--- NOTE | 2021-03-16 19:30 | NUR ---
RN OPENING NOTES: RECEIVED PT A/OX2 IN BED IN NO S/SX OF ACUTE DISTRESS AT THIS TIME. NO SOB NOTED. PATIENT'S BREATHING IS EVEN AND UNLABORED. PATIENT IS ON 2L OF OXYGEN VIA NC; TOLERATING WELL.PATIENT ON TELE MONITORING READING SINUS RHYTHM HR IS @64 BPM AT THE TIME OF RECEIVED. NOTED IV SITE ON L AC #18 AND R FOREARM #18 ; BOTH PATENT, INTACT AND FLUSHING WELL; NO S/S OF INFECTION OR INFILTRATION. PT ON DIAPERS. SAFETY MEASURES HAVE BEEN PROVIDED AND IMPLEMENTED. PATIENT BED ALARM IS ON. HEAD OF BED ELEVATED. BED IS LOCKED, IN LOWEST POSITION AND SIDE RAILS UP. CALL LIGHT WITHIN REACH OF THE PATIENT. APPLICABLE ISOLATION PRECAUTIONS IN PLACE. WILL CONTINUE TO MONITOR AND REASSESS FOR ANY CHANGES AND WILL CARRY OUT ANY ONGOING AND ACTIVE MD ORDER.
[2021-03-16 20:00] VITALS: BP 128/70
[2021-03-16] MEDS: ENOXAPARIN SODIUM 40 MG/0.4 ML DISP.SYRIN SQ SCH (21:37)
[2021-03-17] VITALS: BP 132/74
--- NOTE | 2021-03-17 | NUR ---
RN NOTES PATIENT REMAINED TO BE IN NO SIGNS OF ACUTE RESPIRATORY DISTRESS , VITAL SIGNS WNL AT THIS TIME. BENCH WORKER HOLLOW HANDLE MADE AWARE. WILL CONTINUE TO MONITOR AND REASSESS FOR ANY CHANGES THROUGHOUT THE SHIFT.
[2021-03-17 04:00] VITALS: BP 127/67
--- NOTE | 2021-03-17 04:00 | NUR ---
RN NOTES PATIENT REMAINED TO BE IN NO SIGNS OF ACUTE RESPIRATORY DISTRESS , VITAL SIGNS STABLE AT THIS TIME. REGULAR TURNING AND REPOSITIONING DONE.AM PATIENT CARE RENDERED. WILL CONTINUE TO MONITOR AND REASSESS FOR ANY CHANGES THROUGHOUT THE SHIFT.
[2021-03-17] MEDS: PIPERACILLIN /TAZOBACTAM 3.375 G in IV D5W 50 ML IV SCH ×3 (05:02→17:50)
[2021-03-17 06:20] LABS: BASOPHILS % (AUTO) 0.8 % (0.0-2.0); EOSINOPHILS % (AUTO) 4.7 % (0.0-6.0); HEMATOCRIT 38 % (39-51); HEMOGLOBIN 13.2 g/dL (13.5-17.5); LYMPHOCYTES # (AUTO) 1.5 K/uL (0.8-4.8); LYMPHOCYTES % (AUTO) 33.9 % (20.0-44.0); MEAN CORPUSCULAR HGB CONC 34 g/dl (31.0-36.0); MEAN CORPUSCULAR VOLUME 96 fL (80-96); MONOCYTES # (AUTO) 0.6 K/uL (0.1-1.30); MONOCYTES % (AUTO) 14.2 % (2.0-12.0); NEUTROPHILS # (AUTO) 2.1 K/uL (1.8-8.9); NEUTROPHILS % (AUTO) 46.4 % (43.0-81.0); PLATELET COUNT (AUTO) 133 K/uL (150-450); WHITE BLOOD COUNT (AUTO) 4.5 K/uL (4.3-11.0)
--- NOTE | 2021-03-17 06:45 | NUR ---
RN NOTES F/U WITH LAB FOR THE VANCO TROUGH RESULT ; STAFF SAID STILL BRING PROCESSED. AWAITING RESULT BEFORE GIVING VANCO SCHEDULED (0600). MANAGER PROFESSIONAL DEVELOPMENT MADE AWARE. IF RESULT WONT BE RECEIVED UNTIL 0700AM WILL ENDORSE TO AM SHIFT FOR FOLLOW THROUGH. MANAGER PROFESSIONAL DEVELOPMENT MADE AWARE. Addendum: 03/17/21 at 0702 by KYLEIGH JONES RN @0700 NO RESULT YET FOR THE VANCO TROUGH ; WILL ENDORSE TO AM SHIFT FOR FOLLOW THROUGH AND MED ADMINISTRATION.
[2021-03-17 06:52] LABS: CALCIUM, SERUM 8.8 mg/dL (8.5-10.1); CREATININE 0.8 mg/dL (0.6-1.3); PHOSPHORUS 3.9 mg/dL (2.5-4.9); POTASSIUM 4.4 mmol/L (3.5-5.1)
--- NOTE | 2021-03-17 07:04 | NUR ---
RN CLOSING NOTE: PATIENT REMAINS IN ROOM IN NO SIGNS OF RESPIRATORY DISTRESS, PATIENT STILL ON 2L OF 02 VIA NC ;TOLERATING WELL SATURATING @ >95% SP02. SAFETY MEASURES IMPLEMENTED, BED IN LOWEST POSITION, LOCKED, SIDE RAILS UP, CALL LIGHT WITHIN REACH. ALL NEEDS AND ORDERS ADDRESSED DURING THE SHIFT. IV ACCESS MAINTAINED INTACT, SECURED AND FLUSHING WELL. ALL DUE MEDS GIVEN ORDERED & SCHEDULED ; PATIENT TOLERATED WELL. PATIENT KEPT CLEAN AND COMFORTABLE WITHIN THE SHIFT. WILL ENDORSE TO AM SHIFT TO WAIT FOR THE VANCO TROUGH RESULT BEFORE ADMINISTERING VANCO WHICH WAS DUE AT 0600AM DELAYED ADMIN DUE TO RESULT STILL PENDING; AM SHIFT RECREATIONAL THERAPIST MADE AWARE. PATIENT ENDORSED TO INCOMING SHIFT RN WITH STABLE VITAL SIGN AND FOR CONTINUITY OF CARE.
[2021-03-17 08:00] VITALS: BP 116/72
[2021-03-17] MEDS: VANCOMYCIN 1 GM in IV D5W 250 ML IV SCH (08:49)
[2021-03-17] MEDS: DIVALPROEX SODIUM 500 MG TABLET.DR PO SCH ×2 (10:26→17:50)
[2021-03-17] MEDS: CHOLECALCIFEROL 1,000 UNIT TABLET (VIT D3) PO SCH (10:26)
[2021-03-17] MEDS: LEVETIRACETAM SOL (5 ML) 100 MG/ML UDC PO SCH ×2 (10:26→21:01)
[2021-03-17] MEDS: CARBAMAZEPINE 200 MG TABLET PO SCH ×3 (10:27→17:51)
[2021-03-17] MEDS: LEVOTHYROXINE SODIUM 50 MCG TABLET PO SCH (10:27)
[2021-03-17] MEDS: LACOSAMIDE 50 MG TABLET PO SCH ×2 (10:27→21:01)
[2021-03-17] MEDS: risperiDONE 0.25 MG TABLET PO SCH ×3 (10:27→17:51)
[2021-03-17 12:00] VITALS: BP 116/72
[2021-03-17] MEDS: VANCOMYCIN 0.75 GM in IV D5W 250 ML IV SCH ×2 (14:18→21:04)
[2021-03-17 16:00] VITALS: BP 124/74
[2021-03-17] MEDS: LATANOPROST EYE DROP 0.005% 2.5 ML BOTTLE EACHEYE SCH (17:51)
--- NOTE | 2021-03-17 19:00 | NUR ---
RN OPENING NOTES RECEIVED REPORT FROM MORNING NURSE. PATIENT IN BED A/O X2 WITH PERIODS OF CONFUSION. WITH IV ACCESS AT LFA G#22 PATENT FLUSHES WELL. HOB ELEVATED, SAFETY MEASURES IN PLACE, CALL LIGHT WITHIN REACH. VITAL SIGNS TAKEN AND RECORDED. WILL CONTINUE TO MONITOR PATIENT CLOSELY.
[2021-03-17 20:00] VITALS: BP 137/83
[2021-03-17] MEDS: ENOXAPARIN SODIUM 40 MG/0.4 ML DISP.SYRIN SQ SCH (21:00)
[2021-03-18] VITALS: BP 137/88
[2021-03-18] MEDS: PIPERACILLIN /TAZOBACTAM 3.375 G in IV D5W 50 ML IV SCH ×3 (00:55→11:42)
--- NOTE | 2021-03-18 01:33 | NUR ---
ROLLWAY WORKER NOTE PT KEPT ON GETTING OUT OF BED AND BECOMING FALL RISK. PT IS CONFUSED. UNABLE TO FOLLOW SAFETY PRECAUTIONS. TAMI MURRIETA DNP INFORMED AND RECEIVED NEW ORDER FOR RESTRAINTS SOFT BILATERAL WRIST, ORDER NOTED AND CARRIED OUT.
[2021-03-18 04:00] VITALS: BP 135/78
[2021-03-18] MEDS: VANCOMYCIN 0.75 GM in IV D5W 250 ML IV SCH ×2 (06:59→13:11)
[2021-03-18 07:20] LABS: BASOPHILS % (AUTO) 0.9 % (0.0-2.0); HEMATOCRIT 40 % (39-51); HEMOGLOBIN 13.5 g/dL (13.5-17.5); LYMPHOCYTES # (AUTO) 1.8 K/uL (0.8-4.8); LYMPHOCYTES % (AUTO) 34.7 % (20.0-44.0); MEAN CORPUSCULAR HGB CONC 33 g/dl (31.0-36.0); MEAN CORPUSCULAR VOLUME 98 fL (80-96); MONOCYTES # (AUTO) 0.7 K/uL (0.1-1.30); MONOCYTES % (AUTO) 13.8 % (2.0-12.0); NEUTROPHILS # (AUTO) 2.3 K/uL (1.8-8.9); NEUTROPHILS % (AUTO) 44.6 % (43.0-81.0); PLATELET COUNT (AUTO) 124 K/uL (150-450); RED BLOOD CELL COUNT(AUTO) 4.14 MIL/uL (4.5-6.0); WHITE BLOOD COUNT (AUTO) 5.2 K/uL (4.3-11.0)
--- NOTE | 2021-03-18 07:42 | NUR ---
CUSTOMER MARKETING INTERN NOTES RECEIVED PT ASLEEP IN BED WITH SOFT WRIST RESTRAINTS ON. PT HAS A L ARM 22G IV RUNNING VANCOMYCIN @250ML/HR. SAFETY MEASURES IN PLACE WITH BED IN LOWEST LOCKED POSITION, CALL LIGHT WITHIN REACH AND BED ALARM ON.
[2021-03-18 08:00] VITALS: BP 135/88
[2021-03-18] MEDS: LEVOTHYROXINE SODIUM 50 MCG TABLET PO SCH (08:03)
[2021-03-18] MEDS: DIVALPROEX SODIUM 500 MG TABLET.DR PO SCH ×2 (08:03→16:37)
[2021-03-18] MEDS: CARBAMAZEPINE 200 MG TABLET PO SCH ×3 (08:04→16:36)
[2021-03-18] MEDS: LEVETIRACETAM SOL (5 ML) 100 MG/ML UDC PO SCH (08:04)
[2021-03-18] MEDS: CHOLECALCIFEROL 1,000 UNIT TABLET (VIT D3) PO SCH (08:04)
[2021-03-18] MEDS: risperiDONE 0.25 MG TABLET PO SCH ×3 (08:04→16:36)
[2021-03-18] MEDS: LACOSAMIDE 50 MG TABLET PO SCH (08:04)
[2021-03-18 08:28] LABS: CREATININE 0.7 mg/dL (0.6-1.3); MAGNESIUM 2.3 mg/dL (1.8-2.4); PHOSPHORUS 3.6 mg/dL (2.5-4.9); POTASSIUM 3.9 mmol/L (3.5-5.1)
[2021-03-18] MEDS ORDERED: PIPE3.379 IV (11:54)
[2021-03-18] MEDS ORDERED: VANC1VIA34 GT (11:54)
[2021-03-18 12:00] VITALS: BP 133/77
[2021-03-18 16:00] VITALS: BP 130/79
--- NOTE | 2021-03-18 16:25 | NUR ---
RN NOTES NO NOTABLE CHANGES DURING SHIFT. PT TO BE DISCHARGED TO [facility] WITH IV ABX X 2 DAYS. GAVE REPORT TO ESPERANZA.
--- NOTE | 2021-03-18 17:22 | NUR ---
RN NOTES AMBULANCE ARRIVED FOR FENCE INSTALLER HELPER. IV LEFT IN PLACE PER MD ORDER. BELONGINGS ACCOUNTED FOR. PT IN STABLE CONDITION.
== END 2021-03-18 17:35 | DRG 871 ==
LOC: ER 21:40 → TRANSITION 03-16 04:06 → TELE1 03-16 11:18
PROVIDERS: ADMIT Student in an Organized Health Care Education/Training Program; ATTEND Student in an Organized Health Care Education/Training Program
DX: A41.9 Sepsis, unspecified organism (principal); I21.A1 Myocardial infarction type 2; E87.1 Hypo-osmolality and hyponatremia; G93.40 Encephalopathy, unspecified; F84.0 Autistic disorder; E03.9 Hypothyroidism, unspecified; D64.9 Anemia, unspecified; R56.9 Unspecified convulsions; H40.9 Unspecified glaucoma; D69.6 Thrombocytopenia, unspecified; Z20.822 Contact with and (suspected) exposure to COVID-19
CPT/HCPCS: 36415; 70450-TC; 71045-TC; 80048-TC; 80061-TC; 80076-TC; 80164-TC; 80177; 80202-TC; 83605-TC; 83735-TC; 84100-TC; 84484-TC; 85025-TC; 85730-TC; 87040-TC; 87081-TC; 87086-TC; C9803; G0378; G0480; J1650; J1953; J2405; J2543; J3370; J3490; J7030; J7040; J7050; J7060; U0003

== ENCOUNTER 2022-01-15 08:18 | Emergency (ER) | payer MEDICARE, OTHER ==
[~2022-01-15] VITALS: Ht 190.5 cm; Wt 66.4 kg
[~2022-01-15 08:18] MED LIST changes: +PIPE3.379 IV; +VANC1VIA34 GT
--- NOTE | 2022-01-15 08:28 | NUR ---
[facility] [phone] ([facility])
[2022-01-15] MEDS ORDERED: IV NS 0.9% 1,000 ML BAG IV ONE (08:30)
--- NOTE | 2022-01-15 08:31 | NUR ---
[id number] FOR POOR PO INTAKE AND GEN BODY WEAKNESS. THE PATIENT IS ALERT AND ORIENTED X3. DENIES PAIN. IN ROOM AIR AND DENIES SOB. RESPIRATION REGULAR AND UNLABORED. THE PATIENT IS ATTACHED TO THE MONITOR. WARM BLANKET PROVIDED FOR COMFORT. WILL CONTINUE TO MONITOR THE PATIENT.
--- NOTE | 2022-01-15 08:40 | NUR ---
IV LINE ESTABLISHED ON RFA #18, BLOOD DRAWN AND SENT TO LAB
--- NOTE | 2022-01-15 08:41 | NUR ---
COVID ANTIGEN SWAB DONE AND SENT TO THE LAB
--- NOTE | 2022-01-15 08:43 | NUR ---
ARCHITECTURAL PRACTICE MANAGER AT THE BEDSIDE
[2022-01-15] MEDS ORDERED: MIRT-90 PO (08:50)
[2022-01-15] MEDS ORDERED: RISP0.2515 PO (08:50)
[2022-01-15] MEDS ORDERED: LEVE500T20 PO (08:50)
[2022-01-15] MEDS ORDERED: ASPI-1498 PO (08:50)
[2022-01-15 09:03] LABS: BASOPHILS % (AUTO) 0.4 % (0.0-2.0); HEMATOCRIT 36 % (39-51); HEMOGLOBIN 12.3 g/dL (13.5-17.5); LYMPHOCYTES # (AUTO) 1.6 K/uL (0.8-4.8); LYMPHOCYTES % (AUTO) 46.8 % (20.0-44.0); MEAN CORPUSCULAR HGB CONC 34 g/dl (31.0-36.0); MEAN CORPUSCULAR VOLUME 95 fL (80-96); MONOCYTES # (AUTO) 0.3 K/uL (0.1-1.30); MONOCYTES % (AUTO) 9.5 % (2.0-12.0); NEUTROPHILS # (AUTO) 1.3 K/uL (1.8-8.9); NEUTROPHILS % (AUTO) 37.3 % (43.0-81.0); PLATELET COUNT (AUTO) 138 K/uL (150-450); RED BLOOD CELL COUNT(AUTO) 3.83 MIL/uL (4.5-6.0); WHITE BLOOD COUNT (AUTO) 3.5 K/uL (4.3-11.0)
--- NOTE | 2022-01-15 09:21 | NUR ---
Urine collected and sent to lab.
[2022-01-15 09:43] LABS: CALCIUM, SERUM 8.9 mg/dL (8.5-10.1); CARBON DIOXIDE 32 mmol/L (21-32); CHLORIDE 102 mmol/L (98-107); CREATININE 0.9 mg/dL (0.6-1.3); GLUCOSE 114 mg/dL (74-106); SODIUM SERUM 139 mmol/L (136-145); UREA NITROGEN, BLOOD 18 mg/dL (7-18)
[2022-01-15 09:55] LABS: ALBUMIN 3.7 g/dL (3.4-5.0); BILIRUBIN,DIRECT 0.2 mg/dL (0.0-0.2); BILIRUBIN,TOTAL 0.5 mg/dL (0.2-1.0); TOTAL PROTEIN, SERUM 6.9 g/dL (6.4-8.2)
[2022-01-15 09:57] LABS: BILIRUBIN,URINE NEGATIVE (NEGATIVE); COLOR,URINE YELLOW (YELLOW); LEUKOCYTE ESTERASE ,URINE NEGATIVE (NEGATIVE); NITRITE, URINE NEGATIVE (NEGATIVE); PROTEIN,URINE NEGATIVE (NEGATIVE); UGLUCOSE NEGATIVE (NEGATIVE); UROBILINOGEN,URINE 0.2 EU/dL (0.2)
[2022-01-15 10:20] LABS: BACTERIA,URINE Rare /HPF (None Seen); RBC,URINE 0-2 /HPF (0-2); SQUAMOUS EPITHELIAL CELL,UR Few /HPF (None Seen); WBC,URINE 0-2 /HPF (0-3)
--- NOTE | 2022-01-15 10:25 | NUR ---
[facility] CALLED FOR TRANSPORT ETA 60-75 MINS.
--- NOTE | 2022-01-15 12:25 | NUR ---
[id number] FOR REPORT. SPOKE W/ LATOSHA, DOSIER OPERATOR, AND INFORMED ABT PT GOING BACK TO THEIR FACILITY.
--- NOTE | 2022-01-15 12:27 | NUR ---
IV removed. Catheter intact and site benign. Pressure and 4x4 applied to site. No bleeding noted.
[2022-01-15 12:28] VITALS: BP 124/85
--- NOTE | 2022-01-15 12:29 | NUR ---
Patient discharged to halfway in stable condition accompanied by 2 snath handle assembler. Written and verbal after care instructions given.
== END 2022-01-15 12:30 ==
LOC: ER 08:20
DX: R53.83 Other fatigue (principal); Z20.822 Contact with and (suspected) exposure to COVID-19; R63.0 Anorexia; D64.9 Anemia, unspecified; D69.6 Thrombocytopenia, unspecified; Z79.82 Long term (current) use of aspirin; Z79.899 Other long term (current) drug therapy; F84.0 Autistic disorder; F79 Unspecified intellectual disabilities; H40.9 Unspecified glaucoma; G40.909 Epilepsy, unspecified, not intractable, without status epilepticus; R94.31 Abnormal electrocardiogram [ECG] [EKG]; Z68.1 Body mass index [BMI] 19.9 or less, adult
CPT/HCPCS: 99285; 96360; 71045; 87426; 93005; 85025; 80048; 80076; 81001; 36415; 84484; 83880; 82962; J7030; C9803

== ENCOUNTER 2022-09-05 20:04 | Emergency (ER) | payer MEDICARE, OTHER ==
[~2022-09-05] VITALS: Ht 185.4 cm; Wt 73.1 kg
[~2022-09-05 20:04] MED LIST changes: +ASPI-1498 PO; -LATA2.5D15 EACHEYE; -LEVE500S9 PO; +LEVE500T20 PO; -MELA3TAB41 PO; +MIRT-90 PO; -PIPE3.379 IV; +RISP0.2515 PO; -RISP0.5T65 PO; -VANC1VIA34 GT
--- NOTE | 2022-09-05 20:15 | NUR ---
CAME WITH IV RUFINA G22 ON LEFT FA.
--- NOTE | 2022-09-05 20:15 | NUR ---
[id number] FROM [facility] B&C, POSS SEIZURE, CPR DONE AT FACILITY. CAME AWAKE, +DEVELOPMENTAL DELAY, HX OF SEIZURE. PATIENT IS AWAKE, ABLE TO AMBULATE. CONVERSANT BUT ANSWERS SIMPLE QUESTIONS ONLY. PLACED COMFORTABLY IN BED. ATTACHED TO MONITOR. VITALS CHECKED.
--- NOTE | 2022-09-05 20:29 | NUR ---
EKG DONE AND STRIP ATTACHED TO CHART
--- NOTE | 2022-09-05 20:42 | NUR ---
LAB AT BEDSIDE
--- NOTE | 2022-09-05 20:49 | NUR ---
STTRAIGHT CATH WITH NO URINE RETURN. RECIEVED PT WITH HIS PANTS SOAKED. PT REQUESTED URINAL INSTEAD OF STRAIGHT CATH
[2022-09-05 20:52] LABS: EOSINOPHILS % (AUTO) 2.9 % (0.0-6.0); HEMATOCRIT 33 % (39-51); HEMOGLOBIN 11.4 g/dL (13.5-17.5); LYMPHOCYTES # (AUTO) 1.9 K/uL (0.8-4.8); LYMPHOCYTES % (AUTO) 49.6 % (20.0-44.0); MEAN CORPUSCULAR HGB CONC 34 g/dl (31.0-36.0); MEAN CORPUSCULAR VOLUME 96 fL (80-96); MONOCYTES # (AUTO) 0.5 K/uL (0.1-1.30); MONOCYTES % (AUTO) 12.2 % (2.0-12.0); NEUTROPHILS # (AUTO) 1.3 K/uL (1.8-8.9); NEUTROPHILS % (AUTO) 34.3 % (43.0-81.0); PLATELET COUNT (AUTO) 152 K/uL (150-450); RED BLOOD CELL COUNT(AUTO) 3.46 MIL/uL (4.5-6.0); WHITE BLOOD COUNT (AUTO) 3.9 K/uL (4.3-11.0)
--- NOTE | 2022-09-05 21:07 | NUR ---
PT TAKEN TO CT
[2022-09-05 21:17] LABS: ALANINE AMINOTRANSFERASE 23 U/L (12-78); ALBUMIN 3.5 g/dL (3.4-5.0); ALKALINE PHOSPHATASE 56 U/L (46-116); ASPARTATE AMINOTRANSFERASE 17 U/L (15-37); BILIRUBIN,DIRECT 0.1 mg/dL (0.0-0.2); BILIRUBIN,TOTAL 0.2 mg/dL (0.2-1.0); CALCIUM, SERUM 8.7 mg/dL (8.5-10.1); CARBON DIOXIDE 26 mmol/L (21-32); CHLORIDE 99 mmol/L (98-107); CREATININE 0.7 mg/dL (0.6-1.3); GLUCOSE 103 mg/dL (74-106); SODIUM SERUM 134 mmol/L (136-145); TOTAL PROTEIN, SERUM 6.1 g/dL (6.4-8.2); UREA NITROGEN, BLOOD 12 mg/dL (7-18)
--- NOTE | 2022-09-05 21:20 | NUR ---
PT RETURNED FROM CT
--- NOTE | 2022-09-05 21:35 | NUR ---
STRAIGHT CATH STILL WITH NO URINE RETURN
--- NOTE | 2022-09-05 21:40 | NUR ---
KAYLEE FROM [facility] [phone]
[2022-09-05 21:46] LABS: ALCOHOL, BLOOD < 3 mg/dL (0-0)
--- NOTE | 2022-09-05 22:23 | NUR ---
DR. ABDIRASHID MERRILL WITH STARTING 1L NS OF FLUIDS FOR URINE SAMPLE
[2022-09-05] MEDS ORDERED: IV NS 0.9% 1,000 ML IV ONE ×2 (22:30)
--- NOTE | 2022-09-05 23:32 | NUR ---
[facility] CALLED FOR BLS GOING BACK TO [facility] ETA 60 MIN
--- NOTE | 2022-09-05 23:40 | NUR ---
IV NS 0.9% 1000mL IVPB END TIME [id number]
--- NOTE | 2022-09-05 23:43 | NUR ---
NOTIFIED KAYLEE FROM [facility] PT IS GOING BACK.
--- NOTE | 2022-09-06 00:41 | NUR ---
[facility] HERE TO BRING PATIENT TO [facility]
[2022-09-06 00:42] VITALS: BP 127/70
== END 2022-09-06 00:49 | disposition home or self-care (01) ==
LOC: ER 20:14
DX: G40.909 Epilepsy, unspecified, not intractable, without status epilepticus (principal); Z79.899 Other long term (current) drug therapy; Z79.82 Long term (current) use of aspirin
CPT/HCPCS: 99285; 96360; 93005; 71045; 70450; 85025; 80048; 83605; 80076; 36415; 85730; 80320; 80307; J7030; G0480